=== PATIENT | female | born 1930 | race Asian ===

== ENCOUNTER 2016-07-19 12:07 | Emergency (ER) | payer OTHER ==
[~2016-07-19] VITALS: Ht 157.5 cm; Wt 46.0 kg
[~2016-07-19 12:07] MED LIST: ATOR20TA86 PO; BENZ-26 PO; CARV6 PO; CLOP75 PO; DOCU250C91 PO; FAMO20 PO; LISI-662 PO; MULT1TAB70 PO; NACL1 PO; OMEP20 PO; SITA50 PO
[2016-07-19] MEDS ORDERED: ISOS10TA16 PO (12:13)
[2016-07-19 12:22] LABS: GLUCOSE,POINT OF CARE 110 MG/DL (70-110)
[2016-07-19 12:53] LABS: BASOPHILS % (AUTO) 0.2 % (0.0-2.0); EOSINOPHILS % (AUTO) 2.5 % (1.0-6.0); HEMATOCRIT 38.2 % (36-46); HEMOGLOBIN 12.6 g/dL (12.0-16.0); LYMPHOCYTES % (AUTO) 13.5 % (22.0-44.0); MEAN CORPUSCULAR HEMOGLOBIN 29.4 pg (26.0-34.0); MEAN CORPUSCULAR HGB CONC 32.9 G/dL (31.0-37.0); MEAN CORPUSCULAR VOLUME 89 fL (80-100); MONOCYTES # (AUTO) 0.7 K/uL (0.1-1.0); MONOCYTES % (AUTO) 9.1 % (2.0-9.0); NEUTROPHILS # (AUTO) 5.5 K/uL (1.8-7.7); NEUTROPHILS % (AUTO) 74.7 % (40.0-70.0); PLATELET COUNT (AUTO) 214 K/uL (150-450); RED BLOOD CELL COUNT(AUTO) 4.28 MIL/uL (4.00-5.20); RED CELL DISTRIBUTION WIDTH 12.5 % (11.5-14.5); WHITE BLOOD COUNT (AUTO) 7.3 K/uL (4.5-11.0)
[2016-07-19 13:02] LABS: CALCIUM, TOTAL 8.3 mg/dL (8.8-10.5); CREATININE 0.92 mg/dL (0.60-1.30); POTASSIUM 3.7 mmol/L (3.5-5.1)
[2016-07-19 13:07] LABS: ALBUMIN 3.4 g/dL (3.4-5.0); BILIRUBIN,TOTAL 0.3 mg/dL (0.1-1.0); TOTAL PROTEIN, SERUM 6.8 g/dL (6.4-8.2)
[2016-07-19 13:25] VITALS: BP 145/46
== END 2016-07-19 13:51 | disposition home or self-care (01) ==
LOC: EMS 12:09
DX: R11.2 Nausea with vomiting, unspecified (principal); I11.0 Hypertensive heart disease with heart failure; I50.9 Heart failure, unspecified; E11.9 Type 2 diabetes mellitus without complications; E78.00 Pure hypercholesterolemia, unspecified; I25.10 Atherosclerotic heart disease of native coronary artery without angina pectoris
CPT/HCPCS: 82962; 93005; 99285

== ENCOUNTER 2016-10-18 21:25 | Inpatient (IN) | payer OTHER ==
[~2016-10-18] VITALS: Ht 149.9 cm; Wt 67.0 kg
[~2016-10-18 21:25] MED LIST changes: +ISOS10TA16 PO; -NACL1 PO; -OMEP20 PO
[2016-10-18] MEDS ORDERED: IPRATROPIUM BROMIDE 0.5 MG/2.5 ML NEB SOLUTION NEB ONE (22:00)
[2016-10-18] MEDS ORDERED: ALBUTEROL SULFATE 2.5 MG/0.5 ML NEB SOLUTION NEB ONE (22:00)
[2016-10-18] MEDS ORDERED: 0.9% SODIUM CHLORIDE 5 ML NEB SOLUTION NEB ONE (22:18)
[2016-10-18 22:27] LABS: BASOPHILS # (AUTO) 0.03 K/uL (0.00-0.20); BASOPHILS % (AUTO) 0.4 % (0.0-2.0); EOSINOPHILS # (AUTO) 0.25 K/uL (0.00-0.70); EOSINOPHILS % (AUTO) 3.26 % (1.0-6.0); HEMATOCRIT 37.7 % (36-46); HEMOGLOBIN 12.7 g/dL (12.0-16.0); LYMPHOCYTES # (AUTO) 1.4 K/uL (1.0-4.8); LYMPHOCYTES % (AUTO) 17.5 % (22.0-44.0); MEAN CORPUSCULAR HEMOGLOBIN 29.8 pg (26.0-34.0); MEAN CORPUSCULAR HGB CONC 33.7 G/dL (31.0-37.0); MEAN CORPUSCULAR VOLUME 89 fL (80-100); MONOCYTES % (AUTO) 13.2 % (2.0-9.0); NEUTROPHILS # (AUTO) 5.1 K/uL (1.8-7.7); NEUTROPHILS % (AUTO) 65.7 % (40.0-70.0); PLATELET COUNT (AUTO) 239 K/uL (150-450); RED BLOOD CELL COUNT(AUTO) 4.26 MIL/uL (4.00-5.20); RED CELL DISTRIBUTION WIDTH 13.8 % (11.5-14.5); WHITE BLOOD COUNT (AUTO) 7.8 K/uL (4.5-11.0)
[2016-10-18 22:36] LABS: ANION GAP 6 mmol/L (8-16); CALCIUM, TOTAL 8.3 mg/dL (8.8-10.5); CARBON DIOXIDE 29 mmol/L (22-29); CHLORIDE 90 mmol/L (98-107); CREATININE 0.88 mg/dL (0.60-1.30); GLOMERULAR FILTR. RATE CALC > 60 mL/min (>60); POTASSIUM 3.8 mmol/L (3.5-5.1); SODIUM SERUM 125 mmol/L (136-145); UREA NITROGEN, BLOOD 14 mg/dL (7-18)
[2016-10-18 22:43] LABS: ALANINE AMINOTRANSFERASE 24 U/L (12-78); ALBUMIN 3.4 g/dL (3.4-5.0); ASPARTATE AMINOTRANSFERASE 14 U/L (15-37); BILIRUBIN,TOTAL 0.3 mg/dL (0.1-1.0); CREATINE KINASE, TOTAL 48 U/L (26-192); TOTAL PROTEIN, SERUM 6.7 g/dL (6.4-8.2)
[2016-10-18 22:45] LABS: B-TYPE NATRIURETIC PEPTIDE 143 pg/mL (0-100)
[2016-10-18 22:48] LABS: APPEARANCE,URINE CLEAR (CLEAR); GLUCOSE, URINE (UA) 100 mg/dL (NEGATIVE); KETONES,URINE NEGATIVE (NEGATIVE); LEUKOCYTE ESTERASE ,URINE TRACE (NEGATIVE); OCCULT BLOOD,URINE TRACE (NEGATIVE); PROTEIN,URINE NEGATIVE (NEGATIVE)
[2016-10-18 22:49] LABS: ADD UA MICROSCOPIC YES
[2016-10-18 22:52] LABS: SQUAMOUS EPITHELIAL CELL,UR Many /LPF (None Seen)
[2016-10-18] MEDS ORDERED: ONDANSETRON HCL 4 MG/2 ML VIAL IVP PRN (23:30)
[2016-10-18] MEDS ORDERED: ACETAMINOPHEN 325 MG TABLET PO PRN (23:30)
[2016-10-18] MEDS ORDERED: MethylPREDNISolone SOD SUCC 125 MG/2 ML VIAL IVP ONE (23:30)
[2016-10-18] MEDS ORDERED: SODIUM CHLORIDE 0.9% 1,000 ML IV ONE (23:30)
[2016-10-18] MEDS ORDERED: GuaiFENesin/CODEINE [SUGAR FREE] 200-20MG/10 ML SYRUP UDCUP PO ONE (23:30)
[2016-10-18] MEDS ORDERED: 0.9% SODIUM CHLORIDE 10 ML SYRINGE IVP PRN (23:30)
[2016-10-18] MEDS ORDERED: SODIUM CHLORIDE 1 GM TABLET PO ONE (23:45)
[2016-10-19] VITALS (7 sets, daily range): BP systolic 126–180; BP diastolic 58–88
[2016-10-19] MEDS ORDERED: PNEUMOCOCCAL VACCINE POLYVALENT 0.5 ML VIAL [PPSV23] IM ONE (02:00)
[2016-10-19] MEDS: HydrALAZINE HCL 20 MG/ML VIAL IVP PRN (02:51)
[2016-10-19] MEDS: MULTIVITAMINS, THERAPEUTIC TABLET PO SCH (09:18)
[2016-10-19] MEDS: HEPARIN SODIUM,PORCINE 5,000 UNITS/ML VIAL SQ SCH ×2 (09:19→16:29)
[2016-10-19] MEDS: CLOPIDOGREL BISULFATE 75 MG TABLET PO SCH (09:19)
[2016-10-19] MEDS: CARVEDILOL 6.25 MG TABLET PO SCH ×2 (09:19→20:26)
[2016-10-19] MEDS: ISOSORBIDE DINITRATE 10 MG TABLET PO SCH (09:20)
[2016-10-19] MEDS: FAMOTIDINE 20 MG TABLET PO SCH ×2 (09:20→20:26)
[2016-10-19] MEDS: LISINOPRIL 20 MG TABLET PO SCH (09:20)
[2016-10-19] MEDS: SitaGLIPtin PHOSPHATE 50 MG TABLET PO SCH (09:20)
[2016-10-19] MEDS: MethylPREDNISolone SOD SUCC 40 MG/ML VIAL IVP SCH (16:28)
[2016-10-19] MEDS: BENZONATATE 100 MG CAPSULE PO PRN (17:53)
[2016-10-19] MEDS: ATORVASTATIN CALCIUM 20 MG TABLET PO SCH (20:26)
[2016-10-19] MEDS: OXYGEN THERAPY IH SCH (20:26)
[2016-10-20] VITALS (8 sets, daily range): BP systolic 126–181; BP diastolic 55–92
[2016-10-20] MEDS: HEPARIN SODIUM,PORCINE 5,000 UNITS/ML VIAL SQ SCH ×4 (00:22→23:22)
[2016-10-20] MEDS: MethylPREDNISolone SOD SUCC 40 MG/ML VIAL IVP SCH ×4 (00:22→23:23)
[2016-10-20 05:44] LABS: EOSINOPHILS % (AUTO) 0.1 % (1.0-6.0); HEMATOCRIT 38.9 % (36-46); HEMOGLOBIN 12.4 g/dL (12.0-16.0); LYMPHOCYTES # (AUTO) 0.5 K/uL (1.0-4.8); LYMPHOCYTES % (AUTO) 5.4 % (22.0-44.0); MEAN CORPUSCULAR HEMOGLOBIN 28.7 pg (26.0-34.0); MEAN CORPUSCULAR VOLUME 90 fL (80-100); MONOCYTES # (AUTO) 0.2 K/uL (0.1-1.0); MONOCYTES % (AUTO) 2.4 % (2.0-9.0); PLATELET COUNT (AUTO) 223 K/uL (150-450); RED BLOOD CELL COUNT(AUTO) 4.32 MIL/uL (4.00-5.20); WHITE BLOOD COUNT (AUTO) 8.7 K/uL (4.5-11.0)
[2016-10-20 06:00] LABS: CALCIUM, TOTAL 8.5 mg/dL (8.8-10.5); CREATININE 0.99 mg/dL (0.60-1.30); POTASSIUM 3.8 mmol/L (3.5-5.1)
[2016-10-20 06:38] LABS: NEUTROPHILS % (AUTO) 92.1 % (40.0-70.0)
[2016-10-20] MEDS: CLOPIDOGREL BISULFATE 75 MG TABLET PO SCH (09:01)
[2016-10-20] MEDS: ISOSORBIDE DINITRATE 10 MG TABLET PO SCH (09:01)
[2016-10-20] MEDS: SitaGLIPtin PHOSPHATE 50 MG TABLET PO SCH (09:01)
[2016-10-20] MEDS: CARVEDILOL 6.25 MG TABLET PO SCH ×2 (09:01→20:24)
[2016-10-20] MEDS: MULTIVITAMINS, THERAPEUTIC TABLET PO SCH (09:02)
[2016-10-20] MEDS: OXYGEN THERAPY IH SCH ×2 (09:02→20:24)
[2016-10-20] MEDS: FAMOTIDINE 20 MG TABLET PO SCH ×2 (09:03→20:24)
[2016-10-20] MEDS: LISINOPRIL 20 MG TABLET PO SCH (13:22)
[2016-10-20] MEDS ORDERED: AZITHROMYCIN 250 MG TABLET PO ONE (13:45)
[2016-10-20] MEDS: GuaiFENesin/D-METHORPHAN [SUGAR-FREE] 200-20MG/10 ML SYRUP UDCUP PO PRN ×2 (15:43→21:48)
[2016-10-20] MEDS: HydrALAZINE HCL 20 MG/ML VIAL IVP PRN (19:44)
[2016-10-20] MEDS: ATORVASTATIN CALCIUM 20 MG TABLET PO SCH (20:24)
[2016-10-20] MEDS: ACETAMINOPHEN 325 MG TABLET PO PRN (21:48)
[2016-10-21] VITALS (7 sets, daily range): BP systolic 107–182; BP diastolic 55–92
[2016-10-21] MEDS: HydrALAZINE HCL 20 MG/ML VIAL IVP PRN (04:40)
[2016-10-21] MEDS: GuaiFENesin/D-METHORPHAN [SUGAR-FREE] 200-20MG/10 ML SYRUP UDCUP PO PRN ×2 (04:46→20:07)
[2016-10-21] MEDS ORDERED: NITROGLYCERIN 2% (1 GM=INCH) PACKET TP PRN (05:45)
[2016-10-21] MEDS: ACETAMINOPHEN 325 MG TABLET PO PRN (06:28)
[2016-10-21] MEDS: MethylPREDNISolone SOD SUCC 40 MG/ML VIAL IVP SCH ×2 (09:21→16:46)
[2016-10-21] MEDS: HEPARIN SODIUM,PORCINE 5,000 UNITS/ML VIAL SQ SCH ×2 (09:21→16:46)
[2016-10-21] MEDS: SitaGLIPtin PHOSPHATE 50 MG TABLET PO SCH (09:22)
[2016-10-21] MEDS: ISOSORBIDE DINITRATE 10 MG TABLET PO SCH (09:22)
[2016-10-21] MEDS: CARVEDILOL 6.25 MG TABLET PO SCH ×2 (09:22→20:06)
[2016-10-21] MEDS: FAMOTIDINE 20 MG TABLET PO SCH ×2 (09:23→20:06)
[2016-10-21] MEDS: AZITHROMYCIN 250 MG TABLET PO SCH (09:23)
[2016-10-21] MEDS: MULTIVITAMINS, THERAPEUTIC TABLET PO SCH (09:23)
[2016-10-21] MEDS: LISINOPRIL 20 MG TABLET PO SCH (09:23)
[2016-10-21] MEDS: CLOPIDOGREL BISULFATE 75 MG TABLET PO SCH (09:23)
[2016-10-21] MEDS: DOCUSATE SODIUM 250 MG CAPSULE PO PRN (09:24)
[2016-10-21] MEDS ORDERED: ALBUTEROL SULFATE 2.5 MG/0.5 ML NEB SOLUTION NEB PRN (12:00)
[2016-10-21] MEDS ORDERED: IPRATROPIUM BROMIDE 0.5 MG/2.5 ML NEB SOLUTION NEB PRN (12:00)
[2016-10-21] MEDS ORDERED: FUROSEMIDE 40 MG/4 ML VIAL IVP ONE (13:45)
[2016-10-21] MEDS: IPRATROPIUM BROMIDE 0.5 MG/2.5 ML NEB SOLUTION NEB SCH ×2 (14:52→19:28)
[2016-10-21] MEDS: ALBUTEROL SULFATE 2.5 MG/0.5 ML NEB SOLUTION NEB SCH ×2 (14:52→19:28)
[2016-10-21] MEDS: OXYGEN THERAPY IH SCH (20:00)
[2016-10-21] MEDS: ATORVASTATIN CALCIUM 20 MG TABLET PO SCH (20:06)
[2016-10-22] VITALS (7 sets, daily range): BP systolic 111–172; BP diastolic 67–87
[2016-10-22] MEDS: MethylPREDNISolone SOD SUCC 40 MG/ML VIAL IVP SCH ×3 (00:57→16:05)
[2016-10-22] MEDS: HEPARIN SODIUM,PORCINE 5,000 UNITS/ML VIAL SQ SCH ×3 (00:58→16:06)
[2016-10-22] MEDS: IPRATROPIUM BROMIDE 0.5 MG/2.5 ML NEB SOLUTION NEB SCH ×4 (01:57→19:58)
[2016-10-22] MEDS: ALBUTEROL SULFATE 2.5 MG/0.5 ML NEB SOLUTION NEB SCH ×4 (01:57→19:58)
[2016-10-22 05:51] LABS: EOSINOPHILS % (AUTO) 0 % (1.0-6.0); HEMATOCRIT 37.6 % (36-46); HEMOGLOBIN 12.1 g/dL (12.0-16.0); LYMPHOCYTES # (AUTO) 0.5 K/uL (1.0-4.8); LYMPHOCYTES % (AUTO) 5.5 % (22.0-44.0); MEAN CORPUSCULAR HEMOGLOBIN 28.9 pg (26.0-34.0); MEAN CORPUSCULAR HGB CONC 32.2 G/dL (31.0-37.0); MEAN CORPUSCULAR VOLUME 90 fL (80-100); MONOCYTES # (AUTO) 0.6 K/uL (0.1-1.0); MONOCYTES % (AUTO) 6.6 % (2.0-9.0); NEUTROPHILS # (AUTO) 8.6 K/uL (1.8-7.7); PLATELET COUNT (AUTO) 226 K/uL (150-450); RED CELL DISTRIBUTION WIDTH 13.8 % (11.5-14.5); WHITE BLOOD COUNT (AUTO) 9.8 K/uL (4.5-11.0)
[2016-10-22 07:08] LABS: ALBUMIN 2.9 g/dL (3.4-5.0); BILIRUBIN,TOTAL 0.3 mg/dL (0.1-1.0); CALCIUM, TOTAL 8.1 mg/dL (8.8-10.5); CREATININE 0.99 mg/dL (0.60-1.30); MAGNESIUM 2.1 mg/dL (1.80-2.40); NEUTROPHILS % (AUTO) 87.9 % (40.0-70.0); POTASSIUM 4.4 mmol/L (3.5-5.1); TOTAL PROTEIN, SERUM 5.8 g/dL (6.4-8.2)
[2016-10-22] MEDS: OXYGEN THERAPY IH SCH ×2 (08:05→21:17)
[2016-10-22] MEDS: SODIUM CHLORIDE 1 GM TABLET PO SCH ×2 (09:43→16:06)
[2016-10-22] MEDS: MULTIVITAMINS, THERAPEUTIC TABLET PO SCH (09:43)
[2016-10-22] MEDS: ISOSORBIDE DINITRATE 10 MG TABLET PO SCH (09:43)
[2016-10-22] MEDS: FAMOTIDINE 20 MG TABLET PO SCH ×2 (09:43→20:05)
[2016-10-22] MEDS: CLOPIDOGREL BISULFATE 75 MG TABLET PO SCH (09:43)
[2016-10-22] MEDS: CARVEDILOL 6.25 MG TABLET PO SCH ×2 (09:43→20:05)
[2016-10-22] MEDS: AZITHROMYCIN 250 MG TABLET PO SCH (09:43)
[2016-10-22] MEDS: LISINOPRIL 20 MG TABLET PO SCH (09:43)
[2016-10-22] MEDS: SitaGLIPtin PHOSPHATE 50 MG TABLET PO SCH (09:43)
[2016-10-22 13:11] LABS: ALBUMIN 3.3 g/dL (3.4-5.0); BILIRUBIN,TOTAL 0.3 mg/dL (0.1-1.0); CALCIUM, TOTAL 8.3 mg/dL (8.8-10.5); CREATININE 0.97 mg/dL (0.60-1.30); TOTAL PROTEIN, SERUM 6.4 g/dL (6.4-8.2)
[2016-10-22] MEDS: ACETAMINOPHEN 325 MG TABLET PO PRN (19:44)
[2016-10-22] MEDS: GuaiFENesin/D-METHORPHAN [SUGAR-FREE] 200-20MG/10 ML SYRUP UDCUP PO PRN (20:05)
[2016-10-22] MEDS: ATORVASTATIN CALCIUM 20 MG TABLET PO SCH (20:05)
[2016-10-23] MEDS: SODIUM CHLORIDE 1 GM TABLET PO SCH ×3 (00:30→15:23)
[2016-10-23] MEDS: HEPARIN SODIUM,PORCINE 5,000 UNITS/ML VIAL SQ SCH ×3 (00:39→15:23)
[2016-10-23] MEDS: MethylPREDNISolone SOD SUCC 40 MG/ML VIAL IVP SCH ×3 (00:39→15:23)
[2016-10-23] MEDS: ALBUTEROL SULFATE 2.5 MG/0.5 ML NEB SOLUTION NEB SCH ×4 (02:40→20:52)
[2016-10-23] MEDS: IPRATROPIUM BROMIDE 0.5 MG/2.5 ML NEB SOLUTION NEB SCH ×4 (02:40→20:52)
[2016-10-23 04:11] VITALS: BP 155/76
[2016-10-23 06:46] LABS: EOSINOPHILS % (AUTO) 0 % (1.0-6.0); HEMATOCRIT 38.5 % (36-46); HEMOGLOBIN 12.3 g/dL (12.0-16.0); LYMPHOCYTES # (AUTO) 0.4 K/uL (1.0-4.8); LYMPHOCYTES % (AUTO) 4.9 % (22.0-44.0); MEAN CORPUSCULAR HEMOGLOBIN 28.8 pg (26.0-34.0); MEAN CORPUSCULAR VOLUME 90 fL (80-100); MONOCYTES # (AUTO) 0.5 K/uL (0.1-1.0); MONOCYTES % (AUTO) 5.1 % (2.0-9.0); NEUTROPHILS # (AUTO) 8.2 K/uL (1.8-7.7); PLATELET COUNT (AUTO) 231 K/uL (150-450); RED BLOOD CELL COUNT(AUTO) 4.27 MIL/uL (4.00-5.20); RED CELL DISTRIBUTION WIDTH 13.8 % (11.5-14.5); WHITE BLOOD COUNT (AUTO) 9.2 K/uL (4.5-11.0)
[2016-10-23 07:20] LABS: ALBUMIN 2.9 g/dL (3.4-5.0); BILIRUBIN,TOTAL 0.4 mg/dL (0.1-1.0); CALCIUM, TOTAL 7.8 mg/dL (8.8-10.5); CREATININE 0.91 mg/dL (0.60-1.30); PHOSPHORUS 3.3 mg/dL (2.5-4.9); POTASSIUM 4.5 mmol/L (3.5-5.1); TOTAL PROTEIN, SERUM 5.6 g/dL (6.4-8.2)
[2016-10-23 07:56] VITALS: BP 175/85
[2016-10-23] MEDS: ISOSORBIDE DINITRATE 10 MG TABLET PO SCH (08:53)
[2016-10-23] MEDS: SitaGLIPtin PHOSPHATE 50 MG TABLET PO SCH (08:54)
[2016-10-23] MEDS: OXYGEN THERAPY IH SCH ×2 (08:54→19:43)
[2016-10-23] MEDS: CLOPIDOGREL BISULFATE 75 MG TABLET PO SCH (08:54)
[2016-10-23] MEDS: AZITHROMYCIN 250 MG TABLET PO SCH (08:54)
[2016-10-23] MEDS: MULTIVITAMINS, THERAPEUTIC TABLET PO SCH (08:54)
[2016-10-23] MEDS: FAMOTIDINE 20 MG TABLET PO SCH (08:54)
[2016-10-23] MEDS: CARVEDILOL 6.25 MG TABLET PO SCH ×2 (08:54→20:55)
[2016-10-23] MEDS: LISINOPRIL 20 MG TABLET PO SCH (08:54)
[2016-10-23] MEDS: AmLODIPine BESYLATE 5 MG TABLET PO SCH (09:10)
[2016-10-23 11:40] VITALS: BP 155/66
[2016-10-23] MEDS ORDERED: TOLVAPTAN 15 MG TABLET PO ONE (13:00)
[2016-10-23 15:16] VITALS: BP 152/74
[2016-10-23 19:22] VITALS: BP 165/62
[2016-10-23] MEDS: ATORVASTATIN CALCIUM 20 MG TABLET PO SCH (20:55)
[2016-10-23] MEDS: GuaiFENesin/D-METHORPHAN [SUGAR-FREE] 200-20MG/10 ML SYRUP UDCUP PO PRN (20:59)
[2016-10-23] MEDS: PredniSONE 20 MG TABLET PO SCH (22:53)
[2016-10-23 23:54] VITALS: BP 160/86
[2016-10-24] MEDS: SODIUM CHLORIDE 1 GM TABLET PO SCH (00:27)
[2016-10-24] MEDS: HEPARIN SODIUM,PORCINE 5,000 UNITS/ML VIAL SQ SCH ×4 (00:30→23:26)
[2016-10-24] MEDS: ALBUTEROL SULFATE 2.5 MG/0.5 ML NEB SOLUTION NEB SCH ×4 (03:09→21:11)
[2016-10-24] MEDS: IPRATROPIUM BROMIDE 0.5 MG/2.5 ML NEB SOLUTION NEB SCH ×4 (03:09→21:11)
[2016-10-24 05:16] VITALS: BP 149/72
[2016-10-24] MEDS: PANTOPRAZOLE SODIUM 40 MG DR TABLET PO SCH (05:31)
[2016-10-24 06:32] LABS: EOSINOPHILS % (AUTO) 0 % (1.0-6.0); HEMATOCRIT 40.7 % (36-46); HEMOGLOBIN 12.9 g/dL (12.0-16.0); LYMPHOCYTES # (AUTO) 0.5 K/uL (1.0-4.8); LYMPHOCYTES % (AUTO) 4.4 % (22.0-44.0); MEAN CORPUSCULAR HEMOGLOBIN 28.6 pg (26.0-34.0); MEAN CORPUSCULAR HGB CONC 31.7 G/dL (31.0-37.0); MEAN CORPUSCULAR VOLUME 90 fL (80-100); MONOCYTES # (AUTO) 1.1 K/uL (0.1-1.0); MONOCYTES % (AUTO) 9.9 % (2.0-9.0); NEUTROPHILS # (AUTO) 9.2 K/uL (1.8-7.7); PLATELET COUNT (AUTO) 244 K/uL (150-450); RED CELL DISTRIBUTION WIDTH 14.1 % (11.5-14.5); WHITE BLOOD COUNT (AUTO) 10.7 K/uL (4.5-11.0)
[2016-10-24 07:26] VITALS: BP 148/67
[2016-10-24 07:31] LABS: ALANINE AMINOTRANSFERASE 24 U/L (12-78); ANION GAP 5 mmol/L (8-16); ASPARTATE AMINOTRANSFERASE 24 U/L (15-37); BILIRUBIN,TOTAL 0.3 mg/dL (0.1-1.0); CALCIUM, TOTAL 8.3 mg/dL (8.8-10.5); CARBON DIOXIDE 27 mmol/L (22-29); CHLORIDE 97 mmol/L (98-107); CREATININE 0.86 mg/dL (0.60-1.30); GLOMERULAR FILTR. RATE CALC > 60 mL/min (>60); POTASSIUM 4.9 mmol/L (3.5-5.1); SODIUM SERUM 129 mmol/L (136-145); TOTAL PROTEIN, SERUM 5.8 g/dL (6.4-8.2); UREA NITROGEN, BLOOD 27 mg/dL (7-18)
[2016-10-24 07:32] LABS: NEUTROPHILS % (AUTO) 85.7 % (40.0-70.0)
[2016-10-24] MEDS: OXYGEN THERAPY IH SCH ×2 (08:01→19:20)
[2016-10-24] MEDS ORDERED: TOLVAPTAN 15 MG TABLET PO ONE (08:15)
[2016-10-24] MEDS: SitaGLIPtin PHOSPHATE 50 MG TABLET PO SCH (09:12)
[2016-10-24] MEDS: ISOSORBIDE DINITRATE 10 MG TABLET PO SCH (09:12)
[2016-10-24] MEDS: PredniSONE 20 MG TABLET PO SCH ×2 (09:13→20:15)
[2016-10-24] MEDS: BENZONATATE 100 MG CAPSULE PO PRN (09:13)
[2016-10-24] MEDS: CARVEDILOL 6.25 MG TABLET PO SCH ×2 (09:13→20:15)
[2016-10-24] MEDS: DOCUSATE SODIUM 250 MG CAPSULE PO PRN (09:13)
[2016-10-24] MEDS: MULTIVITAMINS, THERAPEUTIC TABLET PO SCH (09:14)
[2016-10-24] MEDS: AZITHROMYCIN 250 MG TABLET PO SCH (09:14)
[2016-10-24] MEDS: CLOPIDOGREL BISULFATE 75 MG TABLET PO SCH (09:14)
[2016-10-24] MEDS: LISINOPRIL 20 MG TABLET PO SCH (09:14)
[2016-10-24] MEDS: AmLODIPine BESYLATE 5 MG TABLET PO SCH (09:14)
[2016-10-24 11:18] VITALS: BP 122/79
[2016-10-24 15:27] VITALS: BP 113/48
[2016-10-24 17:51] LABS: ANION GAP 3 mmol/L (8-16); CALCIUM, TOTAL 8.3 mg/dL (8.8-10.5); CARBON DIOXIDE 28 mmol/L (22-29); CHLORIDE 98 mmol/L (98-107); CREATININE 0.87 mg/dL (0.60-1.30); GLOMERULAR FILTR. RATE CALC > 60 mL/min (>60); POTASSIUM 4.7 mmol/L (3.5-5.1); SODIUM SERUM 129 mmol/L (136-145); UREA NITROGEN, BLOOD 31 mg/dL (7-18)
[2016-10-24 19:34] VITALS: BP 143/74
[2016-10-24] MEDS: ATORVASTATIN CALCIUM 20 MG TABLET PO SCH (20:15)
[2016-10-24] MEDS: GuaiFENesin/D-METHORPHAN [SUGAR-FREE] 200-20MG/10 ML SYRUP UDCUP PO PRN (20:16)
[2016-10-24 23:25] VITALS: BP 152/73
[2016-10-25] MEDS: ALBUTEROL SULFATE 2.5 MG/0.5 ML NEB SOLUTION NEB SCH ×3 (02:31→14:13)
[2016-10-25] MEDS: IPRATROPIUM BROMIDE 0.5 MG/2.5 ML NEB SOLUTION NEB SCH ×3 (02:31→14:13)
[2016-10-25 04:54] VITALS: BP 145/70
[2016-10-25] MEDS: PANTOPRAZOLE SODIUM 40 MG DR TABLET PO SCH (05:51)
[2016-10-25 06:43] LABS: ANION GAP 3 mmol/L (8-16); CALCIUM, TOTAL 7.7 mg/dL (8.8-10.5); CARBON DIOXIDE 28 mmol/L (22-29); CHLORIDE 98 mmol/L (98-107); CREATININE 0.83 mg/dL (0.60-1.30); GLOMERULAR FILTR. RATE CALC > 60 mL/min (>60); PHOSPHORUS 3.2 mg/dL (2.5-4.9); POTASSIUM 4.8 mmol/L (3.5-5.1); SODIUM SERUM 129 mmol/L (136-145); UREA NITROGEN, BLOOD 30 mg/dL (7-18)
[2016-10-25 08:04] VITALS: BP 149/76
[2016-10-25] MEDS ORDERED: TOLVAPTAN 15 MG TABLET PO ONE (08:45)
[2016-10-25] MEDS: HEPARIN SODIUM,PORCINE 5,000 UNITS/ML VIAL SQ SCH ×2 (09:04→15:52)
[2016-10-25] MEDS: PredniSONE 20 MG TABLET PO SCH (09:04)
[2016-10-25] MEDS: CARVEDILOL 6.25 MG TABLET PO SCH (09:04)
[2016-10-25] MEDS: ISOSORBIDE DINITRATE 10 MG TABLET PO SCH (09:04)
[2016-10-25] MEDS: LISINOPRIL 20 MG TABLET PO SCH (09:05)
[2016-10-25] MEDS: AZITHROMYCIN 250 MG TABLET PO SCH (09:05)
[2016-10-25] MEDS: AmLODIPine BESYLATE 5 MG TABLET PO SCH (09:05)
[2016-10-25] MEDS: CLOPIDOGREL BISULFATE 75 MG TABLET PO SCH (09:05)
[2016-10-25] MEDS: MULTIVITAMINS, THERAPEUTIC TABLET PO SCH (09:05)
[2016-10-25] MEDS: SitaGLIPtin PHOSPHATE 50 MG TABLET PO SCH (09:05)
[2016-10-25] MEDS: OXYGEN THERAPY IH SCH (09:15)
[2016-10-25 11:37] VITALS: BP 101/52
[2016-10-25] MEDS: GuaiFENesin/D-METHORPHAN [SUGAR-FREE] 200-20MG/10 ML SYRUP UDCUP PO PRN ×2 (15:56→16:33)
[2016-10-25] MEDS ORDERED: AMLO-511 PO (16:09)
== END 2016-10-25 17:00 | disposition home or self-care (01) | DRG 189 ==
LOC: EMS 21:27 → 5N 10-19
PROVIDERS: ADMIT Family Medicine; ATTEND Family Medicine
PROC: 3E0234Z Introduction of Serum, Toxoid and Vaccine into Muscle, Percutaneous Approach (ICD-10-PCS; principal; 2016-10-23)
DX: J96.20 Acute and chronic respiratory failure, unspecified whether with hypoxia or hypercapnia (principal); N39.0 Urinary tract infection, site not specified; J45.901 Unspecified asthma with (acute) exacerbation; E22.2 Syndrome of inappropriate secretion of antidiuretic hormone; I50.30 Unspecified diastolic (congestive) heart failure; J44.1 Chronic obstructive pulmonary disease with (acute) exacerbation; J06.9 Acute upper respiratory infection, unspecified; E11.9 Type 2 diabetes mellitus without complications; E78.5 Hyperlipidemia, unspecified; I45.10 Unspecified right bundle-branch block; I25.9 Chronic ischemic heart disease, unspecified; I25.10 Atherosclerotic heart disease of native coronary artery without angina pectoris; I11.0 Hypertensive heart disease with heart failure; I35.0 Nonrheumatic aortic (valve) stenosis; K58.9 Irritable bowel syndrome, unspecified; Z23 Encounter for immunization; Z90.49 Acquired absence of other specified parts of digestive tract; Z79.01 Long term (current) use of anticoagulants; Z79.899 Other long term (current) drug therapy; Z79.2 Long term (current) use of antibiotics; E78.00 Pure hypercholesterolemia, unspecified; Z83.3 Family history of diabetes mellitus; Z82.49 Family history of ischemic heart disease and other diseases of the circulatory system
CPT/HCPCS: 83735; 83935; 84100; 84295; 84300; 87086; 90471; 93005; 93306; 94640; 96361; 96374; 97116; 97161; 97166; 97530; 99285; J0360; J1644; J1940; J2920; J2930; J7030

== ENCOUNTER 2016-12-31 16:02 | Emergency (ER) | payer OTHER ==
[~2016-12-31] VITALS: Ht 162.6 cm; Wt 70.0 kg
[~2016-12-31 16:02] MED LIST changes: +AMLO-511 PO
[2016-12-31 17:23] LABS: GLUCOSE,POINT OF CARE 119 MG/DL (70-110)
[2016-12-31 17:50] LABS: BASOPHILS % (AUTO) 0.7 % (0.0-2.0); EOSINOPHILS % (AUTO) 3.6 % (1.0-6.0); HEMATOCRIT 37.9 % (36-46); HEMOGLOBIN 12.9 g/dL (12.0-16.0); LYMPHOCYTES # (AUTO) 1.2 K/uL (1.0-4.8); LYMPHOCYTES % (AUTO) 20.1 % (22.0-44.0); MEAN CORPUSCULAR HEMOGLOBIN 30.5 pg (26.0-34.0); MEAN CORPUSCULAR VOLUME 90 fL (80-100); MONOCYTES # (AUTO) 0.7 K/uL (0.1-1.0); MONOCYTES % (AUTO) 11.8 % (2.0-9.0); NEUTROPHILS # (AUTO) 3.9 K/uL (1.8-7.7); NEUTROPHILS % (AUTO) 63.8 % (40.0-70.0); PLATELET COUNT (AUTO) 260 K/uL (150-450); RED BLOOD CELL COUNT(AUTO) 4.22 MIL/uL (4.00-5.20); RED CELL DISTRIBUTION WIDTH 13.9 % (11.5-14.5); WHITE BLOOD COUNT (AUTO) 6.1 K/uL (4.5-11.0)
[2016-12-31 17:53] LABS: ANION GAP 6 mmol/L (8-16); CALCIUM, TOTAL 9.5 mg/dL (8.8-10.5); CARBON DIOXIDE 30 mmol/L (22-29); CHLORIDE 92 mmol/L (98-107); CREATININE 0.64 mg/dL (0.60-1.30); GLOMERULAR FILTR. RATE CALC > 60 mL/min (>60); POTASSIUM 3.6 mmol/L (3.5-5.1); SODIUM SERUM 128 mmol/L (136-145); UREA NITROGEN, BLOOD 9 mg/dL (7-18)
[2016-12-31 17:59] LABS: PROTHROMBIN TIME 10.2 SEC (9.4-11.6)
[2016-12-31 18:04] LABS: APPEARANCE,URINE CLEAR (CLEAR); GLUCOSE, URINE (UA) NEGATIVE (NEGATIVE); KETONES,URINE NEGATIVE (NEGATIVE); LEUKOCYTE ESTERASE ,URINE TRACE (NEGATIVE); OCCULT BLOOD,URINE TRACE (NEGATIVE); PH,URINE 7.5 (5.0-8.0); PROTEIN,URINE NEGATIVE (NEGATIVE)
[2016-12-31 18:07] LABS: ADD UA MICROSCOPIC YES; SQUAMOUS EPITHELIAL CELL,UR Moderate /LPF (None Seen)
[2016-12-31 18:13] LABS: B-TYPE NATRIURETIC PEPTIDE 224 pg/mL (0-100)
[2016-12-31 18:18] LABS: ALANINE AMINOTRANSFERASE 27 U/L (12-78); ALBUMIN 3.8 g/dL (3.4-5.0); ASPARTATE AMINOTRANSFERASE 23 U/L (15-37); BILIRUBIN,TOTAL 0.3 mg/dL (0.1-1.0); CREATINE KINASE MB 1.1 ng/mL (0-5); CREATINE KINASE, TOTAL 84 U/L (26-192); TOTAL PROTEIN, SERUM 7.3 g/dL (6.4-8.2)
[2016-12-31] MEDS ORDERED: SODIUM CHLORIDE 0.9% 1,000 ML IV ONE (19:00)
[2016-12-31] MEDS ORDERED: CefTRIAXone 1 GM/DEXTROSE 50 ML IV ONE (20:45)
[2016-12-31 21:24] VITALS: BP 166/74
== END 2016-12-31 21:32 | disposition home or self-care (01) ==
LOC: EMS 16:04
DX: N39.0 Urinary tract infection, site not specified (principal); I11.0 Hypertensive heart disease with heart failure; I50.9 Heart failure, unspecified; I25.10 Atherosclerotic heart disease of native coronary artery without angina pectoris; E11.9 Type 2 diabetes mellitus without complications; E78.00 Pure hypercholesterolemia, unspecified
CPT/HCPCS: 36415; 71010; 80053; 81001; 82550; 82553; 82962; 83690; 83880; 84484; 85025; 85610; 85730; 93005; 96361; 96374; 99285; J0696; J7030

== ENCOUNTER 2017-01-15 12:29 | Emergency (ER) | payer OTHER ==
[~2017-01-15] VITALS: Ht 157.5 cm; Wt 68.2 kg
[2017-01-15] MEDS ORDERED: SODIUM CHLORIDE 0.9% 1,000 ML IV ONE (13:23)
[2017-01-15] MEDS ORDERED: ONDANSETRON HCL 4 MG/2 ML VIAL IVP ONE (13:30)
[2017-01-15] MEDS ORDERED: MORPHINE SULFATE 4 MG/ML SYRINGE IVP ONE (13:30)
[2017-01-15 13:33] LABS: BASOPHILS % (AUTO) 0.3 % (0.0-2.0); EOSINOPHILS % (AUTO) 1.9 % (1.0-6.0); HEMATOCRIT 39.1 % (36-46); HEMOGLOBIN 13.2 g/dL (12.0-16.0); LYMPHOCYTES # (AUTO) 0.9 K/uL (1.0-4.8); LYMPHOCYTES % (AUTO) 12.3 % (22.0-44.0); MEAN CORPUSCULAR HEMOGLOBIN 30.3 pg (26.0-34.0); MEAN CORPUSCULAR HGB CONC 33.7 G/dL (31.0-37.0); MEAN CORPUSCULAR VOLUME 90 fL (80-100); MONOCYTES # (AUTO) 0.7 K/uL (0.1-1.0); MONOCYTES % (AUTO) 9.9 % (2.0-9.0); NEUTROPHILS # (AUTO) 5.7 K/uL (1.8-7.7); NEUTROPHILS % (AUTO) 75.6 % (40.0-70.0); PLATELET COUNT (AUTO) 270 K/uL (150-450); RED BLOOD CELL COUNT(AUTO) 4.34 MIL/uL (4.00-5.20); RED CELL DISTRIBUTION WIDTH 13.3 % (11.5-14.5); WHITE BLOOD COUNT (AUTO) 7.6 K/uL (4.5-11.0)
[2017-01-15 13:54] LABS: ANION GAP 5 mmol/L (8-16); CALCIUM, TOTAL 8.8 mg/dL (8.8-10.5); CARBON DIOXIDE 31 mmol/L (22-29); CHLORIDE 89 mmol/L (98-107); GLOMERULAR FILTR. RATE CALC > 60 mL/min (>60); POTASSIUM 3.7 mmol/L (3.5-5.1); SODIUM SERUM 125 mmol/L (136-145); UREA NITROGEN, BLOOD 11 mg/dL (7-18)
[2017-01-15 13:59] LABS: ALANINE AMINOTRANSFERASE 30 U/L (12-78); ALBUMIN 3.8 g/dL (3.4-5.0); ASPARTATE AMINOTRANSFERASE 20 U/L (15-37); BILIRUBIN,TOTAL 0.3 mg/dL (0.1-1.0); TOTAL PROTEIN, SERUM 7.6 g/dL (6.4-8.2)
[2017-01-15] MEDS ORDERED: BARIUM SULFATE 0.1% SUSPENSION 450 ML BOTTLE PO ONE (14:00)
[2017-01-15 14:39] LABS: APPEARANCE,URINE CLEAR (CLEAR); GLUCOSE, URINE (UA) 100 mg/dL (NEGATIVE); KETONES,URINE NEGATIVE (NEGATIVE); LEUKOCYTE ESTERASE ,URINE NEGATIVE (NEGATIVE); OCCULT BLOOD,URINE NEGATIVE (NEGATIVE); PH,URINE 7.5 (5.0-8.0); PROTEIN,URINE NEGATIVE (NEGATIVE)
[2017-01-15 14:44] LABS: ADD UA MICROSCOPIC YES
[2017-01-15 14:46] LABS: RBC,URINE None Seen /HPF (0-2); WBC,URINE None Seen /HPF (0-5)
[2017-01-15] MEDS ORDERED: IOVERSOL 350 MG/ML 100 ML VIAL ONE (15:48)
[2017-01-15] MEDS ORDERED: SODIUM CHLORIDE 0.9% 100 ML ONE (15:48)
[2017-01-15 18:32] LABS: GLUCOSE,POINT OF CARE 115 MG/DL (70-110)
[2017-01-15 19:15] VITALS: BP 165/83
== END 2017-01-15 20:36 | disposition short-term general hospital (02) ==
LOC: EMS 12:32
DX: E87.1 Hypo-osmolality and hyponatremia (principal); K56.7 Ileus, unspecified; I11.0 Hypertensive heart disease with heart failure; I50.9 Heart failure, unspecified; I25.10 Atherosclerotic heart disease of native coronary artery without angina pectoris; E11.9 Type 2 diabetes mellitus without complications; E78.00 Pure hypercholesterolemia, unspecified; K58.9 Irritable bowel syndrome, unspecified; Z90.49 Acquired absence of other specified parts of digestive tract
CPT/HCPCS: 36415; 51702; 74177; 80053; 81001; 82962; 83690; 84484; 85025; 93005; 96361; 96374; 96375; 99291; J2270; J2405; J7030; J7050; Q9967

== ENCOUNTER 2017-03-05 19:53 | Inpatient (IN) | payer MEDICARE, OTHER ==
[~2017-03-05] VITALS: Ht 154.9 cm; Wt 70.6 kg
[~2017-03-05 19:53] MED LIST changes: -BENZ-26 PO; +BENZ-51 PO; -DOCU250C91 PO; +DSS100 PO; +FLUT1AER IH; +FURO20 PO; -ISOS10TA16 PO; +NACL1 PO; +ONDA4 PO
[2017-03-05 20:12] LABS: GLUCOSE,POINT OF CARE 136 MG/DL (70-110)
[2017-03-05 21:27] LABS: BASOPHILS % (AUTO) 0.5 % (0.0-2.0); EOSINOPHILS % (AUTO) 2.6 % (1.0-6.0); HEMATOCRIT 35.8 % (36-46); HEMOGLOBIN 12.3 g/dL (12.0-16.0); LYMPHOCYTES # (AUTO) 1.2 K/uL (1.0-4.8); MEAN CORPUSCULAR HEMOGLOBIN 30.8 pg (26.0-34.0); MEAN CORPUSCULAR HGB CONC 34.4 G/dL (31.0-37.0); MEAN CORPUSCULAR VOLUME 90 fL (80-100); MONOCYTES % (AUTO) 15.1 % (2.0-9.0); NEUTROPHILS # (AUTO) 4.4 K/uL (1.8-7.7); NEUTROPHILS % (AUTO) 63.8 % (40.0-70.0); PLATELET COUNT (AUTO) 248 K/uL (150-450); RED CELL DISTRIBUTION WIDTH 12.8 % (11.5-14.5); WHITE BLOOD COUNT (AUTO) 6.8 K/uL (4.5-11.0)
[2017-03-05 21:52] LABS: APPEARANCE,URINE CLEAR (CLEAR); GLUCOSE, URINE (UA) 100 mg/dL (NEGATIVE); KETONES,URINE NEGATIVE (NEGATIVE); LEUKOCYTE ESTERASE ,URINE NEGATIVE (NEGATIVE); OCCULT BLOOD,URINE TRACE (NEGATIVE); PROTEIN,URINE NEGATIVE (NEGATIVE)
[2017-03-05 21:53] LABS: ADD UA MICROSCOPIC YES
[2017-03-05 21:55] LABS: INR 0.9 (0.9-1.1)
[2017-03-05 22:00] LABS: ALANINE AMINOTRANSFERASE 23 U/L (12-78); ALBUMIN 3.7 g/dL (3.4-5.0); ANION GAP 8 mmol/L (8-16); ASPARTATE AMINOTRANSFERASE 17 U/L (15-37); BILIRUBIN,TOTAL 0.3 mg/dL (0.1-1.0); CALCIUM, TOTAL 8.6 mg/dL (8.8-10.5); CARBON DIOXIDE 26 mmol/L (22-29); CHLORIDE 82 mmol/L (98-107); CREATINE KINASE MB 1.4 ng/mL (0-5); CREATINE KINASE, TOTAL 107 U/L (26-192); CREATININE 0.56 mg/dL (0.60-1.30); GLOMERULAR FILTR. RATE CALC > 60 mL/min (>60); POTASSIUM 3.7 mmol/L (3.5-5.1); TOTAL PROTEIN, SERUM 7.2 g/dL (6.4-8.2); UREA NITROGEN, BLOOD 13 mg/dL (7-18)
[2017-03-05 22:14] LABS: B-TYPE NATRIURETIC PEPTIDE 151 pg/mL (0-100)
[2017-03-05 22:19] LABS: SQUAMOUS EPITHELIAL CELL,UR Few /LPF (None Seen)
[2017-03-05 22:21] LABS: WBC,URINE 0-2 /HPF (0-5)
[2017-03-05 22:32] LABS: SODIUM SERUM 116 mmol/L (136-145)
[2017-03-05] MEDS ORDERED: 0.9% SODIUM CHLORIDE 10 ML SYRINGE IVP PRN (23:00)
[2017-03-05] MEDS ORDERED: ONDANSETRON HCL 4 MG/2 ML VIAL IVP PRN (23:00)
[2017-03-05] MEDS ORDERED: ACETAMINOPHEN 325 MG TABLET PO PRN (23:00)
[2017-03-06] MEDS ORDERED: SODIUM CHLORIDE 3% 500 ML IV ONE (00:15)
[2017-03-06 07:01] LABS: ANION GAP 6 mmol/L (8-16); CALCIUM, TOTAL 8.3 mg/dL (8.8-10.5); CARBON DIOXIDE 27 mmol/L (22-29); CHLORIDE 89 mmol/L (98-107); CREATININE 0.71 mg/dL (0.60-1.30); GLOMERULAR FILTR. RATE CALC > 60 mL/min (>60); POTASSIUM 3.5 mmol/L (3.5-5.1); UREA NITROGEN, BLOOD 14 mg/dL (7-18); URIC ACID 3.3 mg/dL (2.6-7.2)
[2017-03-06 07:13] LABS: SODIUM SERUM 122 mmol/L (136-145)
[2017-03-06 08:43] VITALS: BP 144/70
[2017-03-06] MEDS: FUROSEMIDE 20 MG TABLET PO SCH (10:30)
[2017-03-06 11:26] VITALS: BP 148/69
[2017-03-06] MEDS: CLOPIDOGREL BISULFATE 75 MG TABLET PO SCH ×2 (11:29→12:22)
[2017-03-06] MEDS: FLUTICASONE/VILANTEROL 100-25 MCG/INH INHALER [14] IH SCH ×2 (11:29→12:21)
[2017-03-06] MEDS: CARVEDILOL 6.25 MG TABLET PO SCH ×3 (11:29→20:34)
[2017-03-06] MEDS: FAMOTIDINE 20 MG TABLET PO SCH ×3 (11:29→20:34)
[2017-03-06] MEDS: LISINOPRIL 20 MG TABLET PO SCH ×2 (11:29→12:22)
[2017-03-06] MEDS: AmLODIPine BESYLATE 5 MG TABLET PO SCH ×2 (11:29→12:21)
[2017-03-06] MEDS: SODIUM CHLORIDE 1 GM TABLET PO SCH ×3 (11:29→20:33)
[2017-03-06] MEDS: MULTIVITAMINS, THERAPEUTIC TABLET PO SCH (12:21)
[2017-03-06] MEDS ORDERED: ALBUTEROL SULFATE 2.5 MG/0.5 ML NEB SOLUTION NEB PRN (13:45)
[2017-03-06] MEDS ORDERED: 0.9% SODIUM CHLORIDE 10 ML SYRINGE IVP PRN ×2 (13:45)
[2017-03-06] MEDS ORDERED: IPRATROPIUM BROMIDE 0.5 MG/2.5 ML NEB SOLUTION NEB PRN (13:45)
[2017-03-06] MEDS ORDERED: HYDROCODONE/ACETAMINOPHEN 5-325 MG TABLET PO PRN (13:45)
[2017-03-06] MEDS ORDERED: ONDANSETRON HCL 4 MG/2 ML VIAL IVP PRN (13:45)
[2017-03-06] MEDS ORDERED: ZOLPIDEM TARTRATE 5 MG TABLET PO PRN (13:45)
[2017-03-06] MEDS ORDERED: DEXTROSE 50%-WATER 25 GM/50 ML SYRINGE IVP PRN (14:00)
[2017-03-06] MEDS: SitaGLIPtin PHOSPHATE 50 MG TABLET PO SCH (15:31)
[2017-03-06] MEDS: FLUTICASONE/VILANTEROL 200-25 MCG/INH INHALER [14] IH SCH (15:32)
[2017-03-06] MEDS: FLUTICASONE PROPIONATE 50 MCG/SPRAY 16 GM NASAL SPRAY NASAL SCH ×2 (15:32→21:00)
[2017-03-06] MEDS: DOCUSATE SODIUM 250 MG CAPSULE PO SCH ×2 (15:34→20:33)
[2017-03-06 15:51] VITALS: BP 137/63
[2017-03-06] MEDS ORDERED: DOCUSATE SODIUM 100 MG CAPSULE PO SCH (16:00)
[2017-03-06] MEDS: INSULIN ASPART 100 UNITS/ML SQ PRN (17:26)
[2017-03-06 17:31] LABS: ANION GAP 8 mmol/L (8-16); CALCIUM, TOTAL 8.4 mg/dL (8.8-10.5); CARBON DIOXIDE 23 mmol/L (22-29); CHLORIDE 91 mmol/L (98-107); CREATININE 0.73 mg/dL (0.60-1.30); GLOMERULAR FILTR. RATE CALC > 60 mL/min (>60); POTASSIUM 4.1 mmol/L (3.5-5.1); UREA NITROGEN, BLOOD 14 mg/dL (7-18)
[2017-03-06 17:35] LABS: SODIUM SERUM 122 mmol/L (136-145)
[2017-03-06 19:25] VITALS: BP 137/52
[2017-03-06 19:59] LABS: GLUCOSE COMMENT 1 Received Meds; GLUCOSE,POINT OF CARE 150 MG/DL (70-110)
[2017-03-06] MEDS: LACTULOSE 20 GM/30 ML SOLUTION UDCUP PO ONE (20:00)
[2017-03-06] MEDS: ACETAMINOPHEN 325 MG TABLET PO PRN (20:31)
[2017-03-06] MEDS: ATORVASTATIN CALCIUM 20 MG TABLET PO SCH (20:34)
[2017-03-06] MEDS: HEPARIN SODIUM,PORCINE 5,000 UNITS/ML VIAL SQ SCH (20:34)
[2017-03-06] MEDS: BIMATOPROST 0.01% 2.5 ML OPHTHALMIC SOLUTION OU SCH (21:00)
[2017-03-06 23:47] VITALS: BP 149/71
[2017-03-07 00:02] LABS: GLUCOSE,POINT OF CARE 124 MG/DL (70-110)
[2017-03-07 03:35] VITALS: BP 139/72
[2017-03-07] MEDS: LACTULOSE 20 GM/30 ML SOLUTION UDCUP PO ONE (05:46)
[2017-03-07] MEDS: PANTOPRAZOLE SODIUM 40 MG DR TABLET PO SCH (05:46)
[2017-03-07 07:18] VITALS: BP 141/64
[2017-03-07] MEDS: FUROSEMIDE 20 MG TABLET PO SCH (09:00)
[2017-03-07] MEDS: FLUTICASONE/VILANTEROL 200-25 MCG/INH INHALER [14] IH SCH (09:23)
[2017-03-07] MEDS: FAMOTIDINE 20 MG TABLET PO SCH ×2 (09:23→22:05)
[2017-03-07] MEDS: SODIUM CHLORIDE 1 GM TABLET PO SCH ×3 (09:23→21:45)
[2017-03-07] MEDS: MULTIVITAMINS, THERAPEUTIC TABLET PO SCH (09:23)
[2017-03-07] MEDS: HEPARIN SODIUM,PORCINE 5,000 UNITS/ML VIAL SQ SCH ×2 (09:23→21:45)
[2017-03-07] MEDS: SitaGLIPtin PHOSPHATE 50 MG TABLET PO SCH (09:23)
[2017-03-07] MEDS: CARVEDILOL 6.25 MG TABLET PO SCH ×2 (09:23→21:46)
[2017-03-07] MEDS: FLUTICASONE PROPIONATE 50 MCG/SPRAY 16 GM NASAL SPRAY NASAL SCH ×2 (09:23→21:46)
[2017-03-07] MEDS: AmLODIPine BESYLATE 5 MG TABLET PO SCH (09:23)
[2017-03-07] MEDS: DOCUSATE SODIUM 250 MG CAPSULE PO SCH ×3 (09:23→21:46)
[2017-03-07] MEDS: CLOPIDOGREL BISULFATE 75 MG TABLET PO SCH (09:23)
[2017-03-07 09:55] LABS: ANION GAP 9 mmol/L (8-16); CALCIUM, TOTAL 8.6 mg/dL (8.8-10.5); CARBON DIOXIDE 25 mmol/L (22-29); CHLORIDE 91 mmol/L (98-107); CREATININE 0.81 mg/dL (0.60-1.30); GLOMERULAR FILTR. RATE CALC > 60 mL/min (>60); POTASSIUM 3.8 mmol/L (3.5-5.1); SODIUM SERUM 125 mmol/L (136-145); UREA NITROGEN, BLOOD 13 mg/dL (7-18)
[2017-03-07 09:59] LABS: PHOSPHORUS 3.6 mg/dL (2.5-4.9)
[2017-03-07] MEDS: LISINOPRIL 20 MG TABLET PO SCH (10:08)
[2017-03-07 11:07] VITALS: BP 132/67
[2017-03-07] MEDS: INSULIN ASPART 100 UNITS/ML SQ PRN ×3 (11:47→21:48)
[2017-03-07 15:12] VITALS: BP 131/64
[2017-03-07 15:53] LABS: THYROID STIMULATING HORMONE 1.95 uIU/mL (0.36-3.74)
[2017-03-07] MEDS: ACETAMINOPHEN 325 MG TABLET PO PRN (15:59)
[2017-03-07 16:08] LABS: CHOL/HDL RATIO 2.2 (3.9-5.7)
[2017-03-07 19:36] VITALS: BP 123/56
[2017-03-07] MEDS: BIMATOPROST 0.01% 2.5 ML OPHTHALMIC SOLUTION OU SCH (21:46)
[2017-03-07] MEDS: ATORVASTATIN CALCIUM 20 MG TABLET PO SCH (21:46)
[2017-03-07 22:37] LABS: GLUCOSE,POINT OF CARE 106 MG/DL (70-110)
[2017-03-07 22:38] LABS: GLUCOSE,POINT OF CARE 188 MG/DL (70-110)
[2017-03-07 23:42] VITALS: BP 149/67
[2017-03-08 04:24] VITALS: BP 153/69
[2017-03-08] MEDS: PANTOPRAZOLE SODIUM 40 MG DR TABLET PO SCH (06:25)
[2017-03-08 07:03] LABS: ALANINE AMINOTRANSFERASE 28 U/L (12-78); ALBUMIN 3.5 g/dL (3.4-5.0); ANION GAP 10 mmol/L (8-16); ASPARTATE AMINOTRANSFERASE 20 U/L (15-37); BILIRUBIN,TOTAL 0.3 mg/dL (0.1-1.0); CALCIUM, TOTAL 8.7 mg/dL (8.8-10.5); CARBON DIOXIDE 26 mmol/L (22-29); CHLORIDE 90 mmol/L (98-107); CREATININE 0.62 mg/dL (0.60-1.30); GLOMERULAR FILTR. RATE CALC > 60 mL/min (>60); SODIUM SERUM 126 mmol/L (136-145); TOTAL PROTEIN, SERUM 6.7 g/dL (6.4-8.2); UREA NITROGEN, BLOOD 12 mg/dL (7-18)
[2017-03-08 07:48] VITALS: BP 137/93
[2017-03-08] MEDS: LISINOPRIL 20 MG TABLET PO SCH (08:50)
[2017-03-08] MEDS: AmLODIPine BESYLATE 5 MG TABLET PO SCH (08:50)
[2017-03-08] MEDS: CLOPIDOGREL BISULFATE 75 MG TABLET PO SCH (08:50)
[2017-03-08] MEDS: FAMOTIDINE 20 MG TABLET PO SCH ×2 (08:50→21:00)
[2017-03-08] MEDS: HEPARIN SODIUM,PORCINE 5,000 UNITS/ML VIAL SQ SCH ×2 (08:51→20:59)
[2017-03-08] MEDS: DOCUSATE SODIUM 250 MG CAPSULE PO SCH ×3 (08:51→21:05)
[2017-03-08] MEDS: FLUTICASONE/VILANTEROL 200-25 MCG/INH INHALER [14] IH SCH (08:51)
[2017-03-08] MEDS: FLUTICASONE PROPIONATE 50 MCG/SPRAY 16 GM NASAL SPRAY NASAL SCH ×2 (08:51→20:59)
[2017-03-08] MEDS: CARVEDILOL 6.25 MG TABLET PO SCH ×2 (08:51→20:59)
[2017-03-08] MEDS: SitaGLIPtin PHOSPHATE 50 MG TABLET PO SCH (08:51)
[2017-03-08] MEDS: SODIUM CHLORIDE 1 GM TABLET PO SCH ×3 (08:51→20:59)
[2017-03-08] MEDS: MULTIVITAMINS, THERAPEUTIC TABLET PO SCH (08:51)
[2017-03-08] MEDS: FUROSEMIDE 20 MG TABLET PO SCH (08:52)
[2017-03-08 11:37] VITALS: BP 144/68
[2017-03-08] MEDS: INSULIN ASPART 100 UNITS/ML SQ PRN ×3 (11:55→21:01)
[2017-03-08 12:12] LABS: GLUCOSE,POINT OF CARE 135 MG/DL (70-110)
[2017-03-08 12:18] LABS: GLUCOSE COMMENT 1 Received Meds; GLUCOSE,POINT OF CARE 146 MG/DL (70-110)
[2017-03-08 15:53] VITALS: BP 132/57
[2017-03-08 17:28] LABS: GLUCOSE,POINT OF CARE 136 MG/DL (70-110)
[2017-03-08 19:56] VITALS: BP 154/67
[2017-03-08] MEDS: ATORVASTATIN CALCIUM 20 MG TABLET PO SCH (21:00)
[2017-03-08] MEDS: BIMATOPROST 0.01% 2.5 ML OPHTHALMIC SOLUTION OU SCH (21:00)
[2017-03-08 23:30] VITALS: BP 137/80
[2017-03-09 04:52] VITALS: BP 144/75
[2017-03-09] MEDS: PANTOPRAZOLE SODIUM 40 MG DR TABLET PO SCH (06:05)
[2017-03-09] MEDS: INSULIN ASPART 100 UNITS/ML SQ PRN ×3 (06:06→20:42)
[2017-03-09 06:32] LABS: ALANINE AMINOTRANSFERASE 25 U/L (12-78); ALBUMIN 3.2 g/dL (3.4-5.0); ANION GAP 8 mmol/L (8-16); ASPARTATE AMINOTRANSFERASE 16 U/L (15-37); BILIRUBIN,TOTAL 0.3 mg/dL (0.1-1.0); CALCIUM, TOTAL 8.2 mg/dL (8.8-10.5); CARBON DIOXIDE 26 mmol/L (22-29); CHLORIDE 93 mmol/L (98-107); CREATININE 0.71 mg/dL (0.60-1.30); GLOMERULAR FILTR. RATE CALC > 60 mL/min (>60); POTASSIUM 3.9 mmol/L (3.5-5.1); SODIUM SERUM 127 mmol/L (136-145); TOTAL PROTEIN, SERUM 6.1 g/dL (6.4-8.2); UREA NITROGEN, BLOOD 11 mg/dL (7-18)
[2017-03-09 07:17] LABS: GLUCOSE COMMENT 1 Received Meds; GLUCOSE,POINT OF CARE 189 MG/DL (70-110)
[2017-03-09 07:31] VITALS: BP 131/48
[2017-03-09] MEDS: SitaGLIPtin PHOSPHATE 50 MG TABLET PO SCH (08:06)
[2017-03-09] MEDS: FLUTICASONE PROPIONATE 50 MCG/SPRAY 16 GM NASAL SPRAY NASAL SCH ×2 (08:06→20:40)
[2017-03-09] MEDS: FLUTICASONE/VILANTEROL 200-25 MCG/INH INHALER [14] IH SCH (08:06)
[2017-03-09] MEDS: CARVEDILOL 6.25 MG TABLET PO SCH ×2 (08:06→20:40)
[2017-03-09] MEDS: LISINOPRIL 20 MG TABLET PO SCH (08:07)
[2017-03-09] MEDS: MULTIVITAMINS, THERAPEUTIC TABLET PO SCH (08:07)
[2017-03-09] MEDS: CLOPIDOGREL BISULFATE 75 MG TABLET PO SCH (08:07)
[2017-03-09] MEDS: FAMOTIDINE 20 MG TABLET PO SCH ×2 (08:07→20:40)
[2017-03-09] MEDS: HEPARIN SODIUM,PORCINE 5,000 UNITS/ML VIAL SQ SCH ×2 (08:07→20:39)
[2017-03-09] MEDS: SODIUM CHLORIDE 1 GM TABLET PO SCH ×3 (08:07→20:39)
[2017-03-09] MEDS: FUROSEMIDE 20 MG TABLET PO SCH (08:09)
[2017-03-09 09:09] LABS: GLUCOSE COMMENT 1 Received Meds; GLUCOSE,POINT OF CARE 173 MG/DL (70-110)
[2017-03-09 09:09] LABS: GLUCOSE COMMENT 1 Received Meds; GLUCOSE,POINT OF CARE 176 MG/DL (70-110)
[2017-03-09 11:09] VITALS: BP 134/62
[2017-03-09] MEDS: AmLODIPine BESYLATE 5 MG TABLET PO SCH (12:41)
[2017-03-09] MEDS: DOCUSATE SODIUM 250 MG CAPSULE PO SCH ×3 (12:41→20:39)
[2017-03-09 16:16] VITALS: BP 152/82
[2017-03-09 19:25] VITALS: BP 155/74
[2017-03-09] MEDS: BIMATOPROST 0.01% 2.5 ML OPHTHALMIC SOLUTION OU SCH (20:39)
[2017-03-09] MEDS: ATORVASTATIN CALCIUM 20 MG TABLET PO SCH (20:40)
[2017-03-09 23:28] VITALS: BP 143/74
[2017-03-09 23:42] LABS: GLUCOSE,POINT OF CARE 115 MG/DL (70-110)
[2017-03-10 05:15] VITALS: BP 159/78
[2017-03-10] MEDS: PANTOPRAZOLE SODIUM 40 MG DR TABLET PO SCH (06:16)
[2017-03-10] MEDS: INSULIN ASPART 100 UNITS/ML SQ PRN ×2 (06:17→11:45)
[2017-03-10 06:33] LABS: GLUCOSE COMMENT 1 Received Meds; GLUCOSE,POINT OF CARE 181 MG/DL (70-110)
[2017-03-10 06:33] LABS: GLUCOSE COMMENT 1 Received Meds; GLUCOSE,POINT OF CARE 190 MG/DL (70-110)
[2017-03-10 07:58] VITALS: BP 164/66
[2017-03-10 08:03] LABS: ALANINE AMINOTRANSFERASE 26 U/L (12-78); ALBUMIN 3.3 g/dL (3.4-5.0); ANION GAP 7 mmol/L (8-16); ASPARTATE AMINOTRANSFERASE 15 U/L (15-37); BILIRUBIN,TOTAL 0.2 mg/dL (0.1-1.0); CALCIUM, TOTAL 8.8 mg/dL (8.8-10.5); CARBON DIOXIDE 29 mmol/L (22-29); CHLORIDE 93 mmol/L (98-107); CREATININE 0.72 mg/dL (0.60-1.30); GLOMERULAR FILTR. RATE CALC > 60 mL/min (>60); POTASSIUM 3.4 mmol/L (3.5-5.1); SODIUM SERUM 129 mmol/L (136-145); UREA NITROGEN, BLOOD 13 mg/dL (7-18)
[2017-03-10] MEDS: FUROSEMIDE 20 MG TABLET PO SCH (09:27)
[2017-03-10] MEDS: MULTIVITAMINS, THERAPEUTIC TABLET PO SCH (09:27)
[2017-03-10] MEDS: FLUTICASONE PROPIONATE 50 MCG/SPRAY 16 GM NASAL SPRAY NASAL SCH (09:27)
[2017-03-10] MEDS: AmLODIPine BESYLATE 5 MG TABLET PO SCH (09:27)
[2017-03-10] MEDS: SODIUM CHLORIDE 1 GM TABLET PO SCH (09:27)
[2017-03-10] MEDS: FLUTICASONE/VILANTEROL 200-25 MCG/INH INHALER [14] IH SCH (09:27)
[2017-03-10] MEDS: CARVEDILOL 6.25 MG TABLET PO SCH (09:27)
[2017-03-10] MEDS: FAMOTIDINE 20 MG TABLET PO SCH (09:28)
[2017-03-10] MEDS: HEPARIN SODIUM,PORCINE 5,000 UNITS/ML VIAL SQ SCH (09:28)
[2017-03-10] MEDS: CLOPIDOGREL BISULFATE 75 MG TABLET PO SCH (09:28)
[2017-03-10] MEDS: DOCUSATE SODIUM 250 MG CAPSULE PO SCH (09:28)
[2017-03-10] MEDS: SitaGLIPtin PHOSPHATE 50 MG TABLET PO SCH (09:28)
[2017-03-10] MEDS: LISINOPRIL 20 MG TABLET PO SCH (09:28)
[2017-03-10 11:07] VITALS: BP 140/68
[2017-03-10] MEDS ORDERED: NACL1 PO (14:10)
[2017-03-10 15:20] VITALS: BP 107/64
[2017-03-10 19:33] LABS: GLUCOSE COMMENT 1 Received Meds; GLUCOSE,POINT OF CARE 148 MG/DL (70-110)
[2017-03-11 00:08] LABS: GLUCOSE,POINT OF CARE 150 MG/DL (70-110)
[2017-03-11 00:08] LABS: GLUCOSE COMMENT 1 Received Meds; GLUCOSE,POINT OF CARE 163 MG/DL (70-110)
== END 2017-03-10 15:58 | disposition home health service (06) | DRG 644 ==
LOC: EMS 19:56 → 5N 03-06 02:27 → 5S 03-07 16:30
PROVIDERS: ADMIT Internal Medicine; ATTEND Internal Medicine
DX: E22.2 Syndrome of inappropriate secretion of antidiuretic hormone (principal); I50.30 Unspecified diastolic (congestive) heart failure; I11.0 Hypertensive heart disease with heart failure; E11.9 Type 2 diabetes mellitus without complications; E78.5 Hyperlipidemia, unspecified; K29.70 Gastritis, unspecified, without bleeding; J44.9 Chronic obstructive pulmonary disease, unspecified; K58.9 Irritable bowel syndrome, unspecified; S80.01XA Contusion of right knee, initial encounter; S80.02XA Contusion of left knee, initial encounter; E78.00 Pure hypercholesterolemia, unspecified; I25.10 Atherosclerotic heart disease of native coronary artery without angina pectoris; Z79.899 Other long term (current) drug therapy
CPT/HCPCS: 51702; 74000; 82962; 83036; 83735; 83935; 84100; 84133; 84300; 84443; 84550; 93005; 96360; 96361; 97162; 97165; 97530; 97535; 99291; J1644; J7030

== ENCOUNTER 2017-03-20 17:32 | Inpatient (IN) | payer MEDICARE, OTHER ==
[~2017-03-20] VITALS: Ht 152.4 cm; Wt 72.8 kg
[2017-03-20 17:58] LABS: GLUCOSE,POINT OF CARE 141 MG/DL (70-110)
[2017-03-20 18:37] LABS: BASOPHILS # (AUTO) 0.02 K/uL (0.00-0.20); BASOPHILS % (AUTO) 0.3 % (0.0-2.0); EOSINOPHILS # (AUTO) 0.31 K/uL (0.00-0.70); EOSINOPHILS % (AUTO) 4.45 % (1.0-6.0); HEMATOCRIT 33.9 % (36-46); HEMOGLOBIN 11.6 g/dL (12.0-16.0); LYMPHOCYTES # (AUTO) 0.9 K/uL (1.0-4.8); LYMPHOCYTES % (AUTO) 13.7 % (22.0-44.0); MEAN CORPUSCULAR HEMOGLOBIN 30.6 pg (26.0-34.0); MEAN CORPUSCULAR HGB CONC 34.1 G/dL (31.0-37.0); MEAN CORPUSCULAR VOLUME 90 fL (80-100); MONOCYTES # (AUTO) 0.7 K/uL (0.1-1.0); MONOCYTES % (AUTO) 10.2 % (2.0-9.0); NEUTROPHILS # (AUTO) 4.9 K/uL (1.8-7.7); NEUTROPHILS % (AUTO) 71.4 % (40.0-70.0); PLATELET COUNT (AUTO) 258 K/uL (150-450); RED BLOOD CELL COUNT(AUTO) 3.78 MIL/uL (4.00-5.20)
[2017-03-20 18:53] LABS: LIPASE 680 U/L (73-393)
[2017-03-20 19:11] LABS: CARBAMAZEPINE (TEGRETOL) < 0.5 mcg/mL (4.0-12.0)
[2017-03-20 19:33] LABS: ALANINE AMINOTRANSFERASE 24 U/L (12-78); ALBUMIN 3.4 g/dL (3.4-5.0); ALKALINE PHOSPHATASE 68 U/L (46-116); ANION GAP 8 mmol/L (8-16); ASPARTATE AMINOTRANSFERASE 19 U/L (15-37); BILIRUBIN,TOTAL 0.4 mg/dL (0.1-1.0); CALCIUM, TOTAL 8.4 mg/dL (8.8-10.5); CARBON DIOXIDE 25 mmol/L (22-29); CHLORIDE 84 mmol/L (98-107); CREATININE 0.57 mg/dL (0.60-1.30); GLOMERULAR FILTR. RATE CALC > 60 mL/min (>60); GLUCOSE,RANDOM 119 mg/dL (70-110); TOTAL PROTEIN, SERUM 6.6 g/dL (6.4-8.2); UREA NITROGEN, BLOOD 14 mg/dL (7-18)
[2017-03-20 19:40] LABS: SODIUM SERUM 117 mmol/L (136-145)
[2017-03-20] MEDS ORDERED: SODIUM CHLORIDE 0.9% 1,000 ML IV ONE (19:45)
[2017-03-20] MEDS ORDERED: 0.9% SODIUM CHLORIDE 10 ML SYRINGE IVP PRN (20:15)
[2017-03-20] MEDS ORDERED: ACETAMINOPHEN 325 MG TABLET PO PRN (20:15)
[2017-03-20] MEDS ORDERED: ONDANSETRON HCL 4 MG/2 ML VIAL IVP PRN (20:15)
[2017-03-20 21:25] VITALS: BP 136/84
[2017-03-20] MEDS ORDERED: MORPHINE SULFATE 2 MG/ML SYRINGE IVP PRN ×2 (21:45)
[2017-03-20] MEDS ORDERED: DEXTROSE 50%-WATER 25 GM/50 ML SYRINGE IVP PRN (21:45)
[2017-03-20] MEDS ORDERED: MAGNESIUM HYDROXIDE SUSPENSION 30 ML UDCUP PO PRN (21:45)
[2017-03-20] MEDS: ACETAMINOPHEN 325 MG TABLET PO PRN (21:56)
[2017-03-21] MEDS ORDERED: SODIUM CHLORIDE 3% 500 ML IV SCH
[2017-03-21 00:04] VITALS: BP 147/57
[2017-03-21] MEDS: LORazepam 2 MG/ML VIAL IVP PRN ×2 (01:22→21:38)
[2017-03-21 05:13] VITALS: BP 135/68
[2017-03-21 06:54] LABS: BASOPHILS % (AUTO) 0.4 % (0.0-2.0); EOSINOPHILS % (AUTO) 4.4 % (1.0-6.0); HEMATOCRIT 35.2 % (36-46); HEMOGLOBIN 11.9 g/dL (12.0-16.0); LYMPHOCYTES # (AUTO) 1.3 K/uL (1.0-4.8); MEAN CORPUSCULAR HEMOGLOBIN 30.8 pg (26.0-34.0); MEAN CORPUSCULAR HGB CONC 33.8 G/dL (31.0-37.0); MEAN CORPUSCULAR VOLUME 91 fL (80-100); MONOCYTES # (AUTO) 0.9 K/uL (0.1-1.0); MONOCYTES % (AUTO) 11.2 % (2.0-9.0); NEUTROPHILS # (AUTO) 5.3 K/uL (1.8-7.7); PLATELET COUNT (AUTO) 271 K/uL (150-450); RED BLOOD CELL COUNT(AUTO) 3.86 MIL/uL (4.00-5.20); RED CELL DISTRIBUTION WIDTH 12.9 % (11.5-14.5)
[2017-03-21 07:10] VITALS: BP 139/72
[2017-03-21 07:17] LABS: HEMOGLOBIN A1C 6.7 % (4.5-6.2)
[2017-03-21 07:53] LABS: AMYLASE 63 U/L (25-115); ANION GAP 8 mmol/L (8-16); CALCIUM, TOTAL 8.4 mg/dL (8.8-10.5); CARBON DIOXIDE 25 mmol/L (22-29); CHLORIDE 85 mmol/L (98-107); CHOL/HDL RATIO 1.9 (3.9-5.7); CHOLESTEROL 170 mg/dL (131-200); CREATINE KINASE, TOTAL 78 U/L (26-192); CREATININE 0.69 mg/dL (0.60-1.30); FREE T4 (FREE THYROXINE) 1.07 ng/dL (0.76-1.46); GLOMERULAR FILTR. RATE CALC > 60 mL/min (>60); GLUCOSE,RANDOM 97 mg/dL (70-110); HDL CHOLESTEROL 91 mg/dL (40-60); LDL CHOL (CALC.) 64 mg/dL (0-130); LIPASE 375 U/L (73-393); PHOSPHORUS 3.7 mg/dL (2.5-4.9); POTASSIUM 3.6 mmol/L (3.5-5.1); THYROID STIMULATING HORMONE 2.49 uIU/mL (0.36-3.74); TRIGLYCERIDES 75 mg/dL (15-150); UREA NITROGEN, BLOOD 13 mg/dL (7-18)
[2017-03-21 07:59] LABS: SODIUM SERUM 118 mmol/L (136-145)
[2017-03-21] MEDS: FLUTICASONE/VILANTEROL 100-25 MCG/INH INHALER [14] IH SCH (09:31)
[2017-03-21] MEDS: CARVEDILOL 6.25 MG TABLET PO SCH ×2 (09:34→19:55)
[2017-03-21] MEDS: PANTOPRAZOLE SODIUM 40 MG/VIAL IVP SCH (09:34)
[2017-03-21] MEDS: DOCUSATE SODIUM 100 MG CAPSULE PO SCH ×3 (09:34→19:55)
[2017-03-21] MEDS: CLOPIDOGREL BISULFATE 75 MG TABLET PO SCH (09:35)
[2017-03-21] MEDS: LISINOPRIL 10 MG TABLET PO SCH (09:35)
[2017-03-21] MEDS: SODIUM CHLORIDE 1 GM TABLET PO SCH ×3 (09:35→20:01)
[2017-03-21] MEDS: MULTIVITAMINS, THERAPEUTIC TABLET PO SCH (09:35)
[2017-03-21 10:38] LABS: FOLATE SERUM 16.2 ng/mL (5.4-)
[2017-03-21 11:18] VITALS: BP 111/47
[2017-03-21 15:17] LABS: ANION GAP 8 mmol/L (8-16); CALCIUM, TOTAL 8.4 mg/dL (8.8-10.5); CARBON DIOXIDE 23 mmol/L (22-29); CHLORIDE 89 mmol/L (98-107); GLOMERULAR FILTR. RATE CALC > 60 mL/min (>60); GLUCOSE,RANDOM 119 mg/dL (70-110); POTASSIUM 4.1 mmol/L (3.5-5.1); UREA NITROGEN, BLOOD 17 mg/dL (7-18)
[2017-03-21 15:23] LABS: SODIUM SERUM 120 mmol/L (136-145)
[2017-03-21 16:03] VITALS: BP 139/71
[2017-03-21 19:46] VITALS: BP 154/73
[2017-03-21] MEDS: ACETAMINOPHEN 325 MG TABLET PO PRN (19:55)
[2017-03-21 20:54] LABS: GLUCOMETER DEV NAME(LOC) 5N 2R; GLUCOSE,POINT OF CARE 109 MG/DL (70-110)
[2017-03-21 20:54] LABS: GLUCOMETER DEV NAME(LOC) 5S 2N; GLUCOSE,POINT OF CARE 147 MG/DL (70-110)
[2017-03-21] MEDS: BENZONATATE 100 MG CAPSULE PO PRN (21:37)
[2017-03-21] MEDS: INSULIN ASPART 100 UNITS/ML SQ PRN (21:40)
[2017-03-21 22:03] LABS: OSMOLALITY,URINE 566 mOS/kg (50-1200)
[2017-03-21 22:05] LABS: SODIUM,URINE RANDOM 74 mmol/l (20-110)
[2017-03-22] VITALS (7 sets, daily range): BP systolic 138–165; BP diastolic 55–91
[2017-03-22 06:48] LABS: GLUCOMETER DEV NAME(LOC) 5N 1M; GLUCOSE,POINT OF CARE 126 MG/DL (70-110)
[2017-03-22 06:48] LABS: GLUCOMETER DEV NAME(LOC) 5N 1M; GLUCOSE,POINT OF CARE 152 MG/DL (70-110)
[2017-03-22 06:49] LABS: GLUCOMETER DEV NAME(LOC) 5N 1M; GLUCOSE,POINT OF CARE 128 MG/DL (70-110)
[2017-03-22 07:55] LABS: BASOPHILS # (AUTO) 0.06 K/uL (0.00-0.20); BASOPHILS % (AUTO) 0.9 % (0.0-2.0); EOSINOPHILS % (AUTO) 4.94 % (1.0-6.0); HEMOGLOBIN 11.7 g/dL (12.0-16.0); LYMPHOCYTES # (AUTO) 0.8 K/uL (1.0-4.8); LYMPHOCYTES % (AUTO) 13.7 % (22.0-44.0); MEAN CORPUSCULAR HEMOGLOBIN 30.6 pg (26.0-34.0); MEAN CORPUSCULAR HGB CONC 33.5 G/dL (31.0-37.0); MEAN CORPUSCULAR VOLUME 92 fL (80-100); MONOCYTES # (AUTO) 0.8 K/uL (0.1-1.0); MONOCYTES % (AUTO) 12.6 % (2.0-9.0); NEUTROPHILS # (AUTO) 4.1 K/uL (1.8-7.7); NEUTROPHILS % (AUTO) 67.9 % (40.0-70.0); PLATELET COUNT (AUTO) 269 K/uL (150-450); RED BLOOD CELL COUNT(AUTO) 3.82 MIL/uL (4.00-5.20); RED CELL DISTRIBUTION WIDTH 13.3 % (11.5-14.5)
[2017-03-22] MEDS: FLUTICASONE/VILANTEROL 100-25 MCG/INH INHALER [14] IH SCH (08:51)
[2017-03-22] MEDS: DOCUSATE SODIUM 100 MG CAPSULE PO SCH ×3 (08:52→19:46)
[2017-03-22] MEDS: MULTIVITAMINS, THERAPEUTIC TABLET PO SCH (08:52)
[2017-03-22] MEDS: PANTOPRAZOLE SODIUM 40 MG/VIAL IVP SCH (08:52)
[2017-03-22] MEDS: CARVEDILOL 6.25 MG TABLET PO SCH ×2 (08:52→19:45)
[2017-03-22] MEDS: LISINOPRIL 10 MG TABLET PO SCH (08:52)
[2017-03-22] MEDS: CLOPIDOGREL BISULFATE 75 MG TABLET PO SCH (08:52)
[2017-03-22] MEDS: SODIUM CHLORIDE 1 GM TABLET PO SCH ×3 (09:00→19:45)
[2017-03-22 09:11] LABS: ANION GAP 6 mmol/L (8-16); CALCIUM, TOTAL 8.3 mg/dL (8.8-10.5); CARBON DIOXIDE 26 mmol/L (22-29); CHLORIDE 92 mmol/L (98-107); CREATININE 0.59 mg/dL (0.60-1.30); GLOMERULAR FILTR. RATE CALC > 60 mL/min (>60); GLUCOSE,RANDOM 104 mg/dL (70-110); POTASSIUM 3.8 mmol/L (3.5-5.1); UREA NITROGEN, BLOOD 13 mg/dL (7-18)
[2017-03-22 09:19] LABS: SODIUM SERUM 124 mmol/L (136-145)
[2017-03-22] MEDS: ACETAMINOPHEN 325 MG TABLET PO PRN (13:09)
[2017-03-22] MEDS: INSULIN ASPART 100 UNITS/ML SQ PRN (17:59)
[2017-03-22] MEDS: ZOLPIDEM TARTRATE 5 MG TABLET PO PRN (22:02)
[2017-03-22] MEDS: LORazepam 2 MG/ML VIAL IVP PRN (23:40)
[2017-03-23 05:37] VITALS: BP 165/86
[2017-03-23 05:49] VITALS: BP 124/74
[2017-03-23 06:08] LABS: GLUCOMETER DEV NAME(LOC) 5N 2R; GLUCOSE,POINT OF CARE 140 MG/DL (70-110)
[2017-03-23 06:08] LABS: GLUCOMETER DEV NAME(LOC) 5N 2R; GLUCOSE,POINT OF CARE 182 MG/DL (70-110)
[2017-03-23 06:09] LABS: GLUCOMETER DEV NAME(LOC) 5N 2R; GLUCOSE,POINT OF CARE 130 MG/DL (70-110)
[2017-03-23 06:09] LABS: GLUCOMETER DEV NAME(LOC) 5N 2R; GLUCOSE,POINT OF CARE 130 MG/DL (70-110)
[2017-03-23 06:59] LABS: BASOPHILS # (AUTO) 0.04 K/uL (0.00-0.20); BASOPHILS % (AUTO) 0.6 % (0.0-2.0); EOSINOPHILS # (AUTO) 0.31 K/uL (0.00-0.70); EOSINOPHILS % (AUTO) 4.21 % (1.0-6.0); HEMATOCRIT 35.3 % (36-46); HEMOGLOBIN 11.8 g/dL (12.0-16.0); LYMPHOCYTES # (AUTO) 1.1 K/uL (1.0-4.8); LYMPHOCYTES % (AUTO) 15.1 % (22.0-44.0); MEAN CORPUSCULAR HEMOGLOBIN 30.5 pg (26.0-34.0); MEAN CORPUSCULAR HGB CONC 33.4 G/dL (31.0-37.0); MEAN CORPUSCULAR VOLUME 91 fL (80-100); MONOCYTES # (AUTO) 0.8 K/uL (0.1-1.0); MONOCYTES % (AUTO) 11.2 % (2.0-9.0); NEUTROPHILS # (AUTO) 5.2 K/uL (1.8-7.7); NEUTROPHILS % (AUTO) 68.9 % (40.0-70.0); PLATELET COUNT (AUTO) 276 K/uL (150-450); RED BLOOD CELL COUNT(AUTO) 3.86 MIL/uL (4.00-5.20); RED CELL DISTRIBUTION WIDTH 13.2 % (11.5-14.5)
[2017-03-23 07:06] LABS: AMYLASE 61 U/L (25-115); ANION GAP 8 mmol/L (8-16); CALCIUM, TOTAL 8.7 mg/dL (8.8-10.5); CARBON DIOXIDE 26 mmol/L (22-29); CHLORIDE 91 mmol/L (98-107); CREATININE 0.57 mg/dL (0.60-1.30); GLOMERULAR FILTR. RATE CALC > 60 mL/min (>60); GLUCOSE,RANDOM 103 mg/dL (70-110); LIPASE 377 U/L (73-393); POTASSIUM 3.5 mmol/L (3.5-5.1); SODIUM SERUM 125 mmol/L (136-145); UREA NITROGEN, BLOOD 12 mg/dL (7-18)
[2017-03-23 07:24] VITALS: BP 157/75
[2017-03-23] MEDS: LISINOPRIL 10 MG TABLET PO SCH (08:11)
[2017-03-23] MEDS: SODIUM CHLORIDE 1 GM TABLET PO SCH ×3 (08:11→20:55)
[2017-03-23] MEDS: FLUTICASONE/VILANTEROL 100-25 MCG/INH INHALER [14] IH SCH (08:12)
[2017-03-23] MEDS: CARVEDILOL 6.25 MG TABLET PO SCH ×2 (08:12→20:55)
[2017-03-23] MEDS: DOCUSATE SODIUM 100 MG CAPSULE PO SCH ×3 (08:12→20:55)
[2017-03-23] MEDS: PANTOPRAZOLE SODIUM 40 MG/VIAL IVP SCH (08:12)
[2017-03-23] MEDS: MULTIVITAMINS, THERAPEUTIC TABLET PO SCH (08:12)
[2017-03-23] MEDS: CLOPIDOGREL BISULFATE 75 MG TABLET PO SCH (08:12)
[2017-03-23] MEDS ORDERED: BISACODYL 10 MG RECTAL RECTAL SUPPOSITORY PR PRN (10:30)
[2017-03-23 11:38] VITALS: BP 148/80
[2017-03-23 14:28] LABS: GLUCOMETER DEV NAME(LOC) 5S 2N; GLUCOSE,POINT OF CARE 131 MG/DL (70-110)
[2017-03-23 16:07] VITALS: BP 128/58
[2017-03-23] MEDS: INSULIN ASPART 100 UNITS/ML SQ PRN ×2 (17:49→21:08)
[2017-03-23 20:53] VITALS: BP 160/85
[2017-03-23] MEDS: ACETAMINOPHEN 325 MG TABLET PO PRN (20:55)
[2017-03-23] MEDS: CHOLECALCIFEROL (VIT D3) 1,000 UNITS TABLET PO SCH (21:05)
[2017-03-23] MEDS: ONDANSETRON HCL 4 MG/2 ML VIAL IVP PRN (21:11)
[2017-03-24] VITALS (7 sets, daily range): BP systolic 140–167; BP diastolic 55–77
[2017-03-24] MEDS: IPRATROPIUM BROMIDE 0.5 MG/2.5 ML NEB SOLUTION NEB PRN (02:59)
[2017-03-24] MEDS: ALBUTEROL SULFATE 2.5 MG/0.5 ML NEB SOLUTION NEB PRN (02:59)
[2017-03-24 03:57] LABS: GLUCOMETER DEV NAME(LOC) 5S 2N; GLUCOSE,POINT OF CARE 163 MG/DL (70-110)
[2017-03-24 03:58] LABS: GLUCOMETER DEV NAME(LOC) 5S 2N; GLUCOSE,POINT OF CARE 149 MG/DL (70-110)
[2017-03-24 03:58] LABS: GLUCOMETER DEV NAME(LOC) 5N 1M; GLUCOSE,POINT OF CARE 152 MG/DL (70-110)
[2017-03-24] MEDS: INSULIN ASPART 100 UNITS/ML SQ PRN ×3 (06:02→22:18)
[2017-03-24 06:47] LABS: ANION GAP 8 mmol/L (8-16); CALCIUM, TOTAL 8.7 mg/dL (8.8-10.5); CARBON DIOXIDE 26 mmol/L (22-29); CHLORIDE 90 mmol/L (98-107); CREATININE 0.68 mg/dL (0.60-1.30); GLOMERULAR FILTR. RATE CALC > 60 mL/min (>60); GLUCOSE,RANDOM 152 mg/dL (70-110); PHOSPHORUS 3.3 mg/dL (2.5-4.9); POTASSIUM 4.1 mmol/L (3.5-5.1); UREA NITROGEN, BLOOD 11 mg/dL (7-18)
[2017-03-24 07:10] LABS: SODIUM SERUM 124 mmol/L (136-145)
[2017-03-24] MEDS: LISINOPRIL 10 MG TABLET PO SCH (08:02)
[2017-03-24] MEDS: SODIUM CHLORIDE 1 GM TABLET PO SCH ×5 (08:02→21:21)
[2017-03-24] MEDS: DOCUSATE SODIUM 100 MG CAPSULE PO SCH ×3 (08:02→21:20)
[2017-03-24] MEDS: CHOLECALCIFEROL (VIT D3) 1,000 UNITS TABLET PO SCH ×2 (08:02→21:20)
[2017-03-24] MEDS: CLOPIDOGREL BISULFATE 75 MG TABLET PO SCH (08:02)
[2017-03-24] MEDS: FLUTICASONE/VILANTEROL 100-25 MCG/INH INHALER [14] IH SCH (08:03)
[2017-03-24] MEDS: PANTOPRAZOLE SODIUM 40 MG/VIAL IVP SCH (08:03)
[2017-03-24] MEDS: CARVEDILOL 6.25 MG TABLET PO SCH ×2 (08:03→21:20)
[2017-03-24] MEDS: MULTIVITAMINS, THERAPEUTIC TABLET PO SCH (08:03)
[2017-03-24] MEDS: ONDANSETRON HCL 4 MG/2 ML VIAL IVP PRN (08:06)
[2017-03-24 17:03] LABS: GLUCOMETER DEV NAME(LOC) 5N 1M; GLUCOSE,POINT OF CARE 117 MG/DL (70-110)
[2017-03-24] MEDS ORDERED: LACTULOSE 20 GM/30 ML SOLUTION UDCUP PO ONE (17:45)
[2017-03-24 19:27] LABS: GLUCOMETER DEV NAME(LOC) 5S 2N; GLUCOSE,POINT OF CARE 151 MG/DL (70-110)
[2017-03-24 19:33] LABS: GLUCOMETER DEV NAME(LOC) 5N 1M; GLUCOSE,POINT OF CARE 191 MG/DL (70-110)
[2017-03-24] MEDS: ZOLPIDEM TARTRATE 5 MG TABLET PO PRN (22:37)
[2017-03-25 01:46] VITALS: BP 129/57
[2017-03-25 02:58] LABS: GLUCOMETER DEV NAME(LOC) 5S 1L; GLUCOSE,POINT OF CARE 152 MG/DL (70-110)
[2017-03-25] MEDS: INSULIN ASPART 100 UNITS/ML SQ PRN ×4 (05:44→20:53)
[2017-03-25 06:52] LABS: GLUCOMETER DEV NAME(LOC) 5S 2N; GLUCOSE,POINT OF CARE 126 MG/DL (70-110)
[2017-03-25 07:00] LABS: ANION GAP 9 mmol/L (8-16); CALCIUM, TOTAL 8.4 mg/dL (8.8-10.5); CARBON DIOXIDE 27 mmol/L (22-29); CHLORIDE 92 mmol/L (98-107); CREATININE 0.79 mg/dL (0.60-1.30); GLOMERULAR FILTR. RATE CALC > 60 mL/min (>60); GLUCOSE,RANDOM 176 mg/dL (70-110); PHOSPHORUS 3.5 mg/dL (2.5-4.9); POTASSIUM 3.8 mmol/L (3.5-5.1); SODIUM SERUM 128 mmol/L (136-145); UREA NITROGEN, BLOOD 13 mg/dL (7-18)
[2017-03-25 07:51] VITALS: BP 163/78
[2017-03-25] MEDS: PANTOPRAZOLE SODIUM 40 MG/VIAL IVP SCH (08:17)
[2017-03-25] MEDS: MULTIVITAMINS, THERAPEUTIC TABLET PO SCH (08:17)
[2017-03-25] MEDS: CARVEDILOL 6.25 MG TABLET PO SCH ×2 (08:17→20:46)
[2017-03-25] MEDS: LISINOPRIL 10 MG TABLET PO SCH (08:17)
[2017-03-25] MEDS: DOCUSATE SODIUM 100 MG CAPSULE PO SCH ×3 (08:17→20:46)
[2017-03-25] MEDS: SODIUM CHLORIDE 1 GM TABLET PO SCH ×4 (08:17→20:46)
[2017-03-25] MEDS: CLOPIDOGREL BISULFATE 75 MG TABLET PO SCH (08:17)
[2017-03-25] MEDS: CHOLECALCIFEROL (VIT D3) 1,000 UNITS TABLET PO SCH ×2 (08:17→20:46)
[2017-03-25 09:02] VITALS: BP 185/95
[2017-03-25] MEDS: IPRATROPIUM BROMIDE 0.5 MG/2.5 ML NEB SOLUTION NEB PRN ×2 (09:16→14:54)
[2017-03-25] MEDS: ALBUTEROL SULFATE 2.5 MG/0.5 ML NEB SOLUTION NEB PRN ×2 (09:16→14:54)
[2017-03-25 11:28] VITALS: BP 124/64
[2017-03-25] MEDS: FLUTICASONE/VILANTEROL 100-25 MCG/INH INHALER [14] IH SCH (12:59)
[2017-03-25 16:14] VITALS: BP 155/68
[2017-03-25] MEDS ORDERED: LACTULOSE 20 GM/30 ML SOLUTION UDCUP PO ONE (16:30)
[2017-03-25] MEDS ORDERED: FUROSEMIDE 20 MG/2 ML VIAL IVP ONE (16:30)
[2017-03-25] MEDS: ACETAMINOPHEN 325 MG TABLET PO PRN (19:32)
[2017-03-25 20:38] VITALS: BP 159/76
[2017-03-25] MEDS: ZOLPIDEM TARTRATE 5 MG TABLET PO PRN (20:46)
[2017-03-26] VITALS (8 sets, daily range): BP systolic 144–175; BP diastolic 62–90
[2017-03-26] MEDS ORDERED: LACTULOSE 20 GM/30 ML SOLUTION UDCUP PO ONE ×3 (08:30→14:00)
[2017-03-26] MEDS: PANTOPRAZOLE SODIUM 40 MG/VIAL IVP SCH (08:36)
[2017-03-26] MEDS: FLUTICASONE/VILANTEROL 100-25 MCG/INH INHALER [14] IH SCH (08:36)
[2017-03-26] MEDS: CHOLECALCIFEROL (VIT D3) 1,000 UNITS TABLET PO SCH ×2 (08:37→20:39)
[2017-03-26] MEDS: SODIUM CHLORIDE 1 GM TABLET PO SCH ×4 (08:37→20:39)
[2017-03-26] MEDS: CLOPIDOGREL BISULFATE 75 MG TABLET PO SCH (08:37)
[2017-03-26] MEDS: DOCUSATE SODIUM 100 MG CAPSULE PO SCH ×3 (08:37→20:39)
[2017-03-26] MEDS: MULTIVITAMINS, THERAPEUTIC TABLET PO SCH (08:37)
[2017-03-26] MEDS: CARVEDILOL 6.25 MG TABLET PO SCH ×2 (08:37→20:39)
[2017-03-26] MEDS: LISINOPRIL 10 MG TABLET PO SCH (08:37)
[2017-03-26] MEDS: BENZONATATE 100 MG CAPSULE PO PRN (08:38)
[2017-03-26 09:01] LABS: ANION GAP 7 mmol/L (8-16); CALCIUM, TOTAL 8.8 mg/dL (8.8-10.5); CARBON DIOXIDE 28 mmol/L (22-29); CHLORIDE 91 mmol/L (98-107); CREATININE 0.65 mg/dL (0.60-1.30); GLOMERULAR FILTR. RATE CALC > 60 mL/min (>60); GLUCOSE,RANDOM 143 mg/dL (70-110); POTASSIUM 3.5 mmol/L (3.5-5.1); SODIUM SERUM 126 mmol/L (136-145); UREA NITROGEN, BLOOD 12 mg/dL (7-18)
[2017-03-26] MEDS ORDERED: TOLVAPTAN 15 MG TABLET PO ONE (09:45)
[2017-03-26] MEDS ORDERED: VITAD1000 PO (11:31)
[2017-03-26] MEDS ORDERED: LISI-661 PO (11:32)
[2017-03-26] MEDS ORDERED: PANT40I IV (11:33)
[2017-03-26] MEDS ORDERED: NACL1 PO (11:34)
[2017-03-26] MEDS ORDERED: AUD NEB (11:35)
[2017-03-26] MEDS ORDERED: ACET-784 PO (11:35)
[2017-03-26] MEDS ORDERED: BISA10S PR (11:37)
[2017-03-26] MEDS ORDERED: INSNOV SQ (11:38)
[2017-03-26] MEDS ORDERED: IPRNEB IH (11:39)
[2017-03-26] MEDS ORDERED: MOM30 PO (11:39)
[2017-03-26] MEDS ORDERED: ONDA4 IV (11:40)
[2017-03-26] MEDS ORDERED: ZOLP5 PO (11:40)
[2017-03-26] MEDS: INSULIN ASPART 100 UNITS/ML SQ PRN ×3 (12:08→20:47)
[2017-03-26] MEDS: AmLODIPine BESYLATE 5 MG TABLET PO SCH (14:02)
[2017-03-26] MEDS: ZOLPIDEM TARTRATE 5 MG TABLET PO PRN (20:48)
[2017-03-26] MEDS: ACETAMINOPHEN 325 MG TABLET PO PRN (21:13)
[2017-03-27 03:29] VITALS: BP 148/66
[2017-03-27] MEDS: INSULIN ASPART 100 UNITS/ML SQ PRN ×4 (06:20→20:11)
[2017-03-27 07:16] VITALS: BP 172/55
[2017-03-27] MEDS: MULTIVITAMINS, THERAPEUTIC TABLET PO SCH (07:49)
[2017-03-27] MEDS: AmLODIPine BESYLATE 5 MG TABLET PO SCH (07:49)
[2017-03-27] MEDS: PANTOPRAZOLE SODIUM 40 MG DR TABLET PO SCH (07:49)
[2017-03-27] MEDS: DOCUSATE SODIUM 100 MG CAPSULE PO SCH ×3 (07:49→19:47)
[2017-03-27] MEDS: CARVEDILOL 6.25 MG TABLET PO SCH ×2 (07:49→19:47)
[2017-03-27] MEDS: CLOPIDOGREL BISULFATE 75 MG TABLET PO SCH (07:49)
[2017-03-27] MEDS: LISINOPRIL 10 MG TABLET PO SCH (07:49)
[2017-03-27] MEDS: CHOLECALCIFEROL (VIT D3) 1,000 UNITS TABLET PO SCH ×2 (07:49→19:47)
[2017-03-27] MEDS: SODIUM CHLORIDE 1 GM TABLET PO SCH ×4 (07:49→19:47)
[2017-03-27] MEDS: FLUTICASONE/VILANTEROL 100-25 MCG/INH INHALER [14] IH SCH (07:49)
[2017-03-27 11:10] VITALS: BP 176/82
[2017-03-27 12:34] LABS: ANION GAP 8 mmol/L (8-16); CALCIUM, TOTAL 8.8 mg/dL (8.8-10.5); CARBON DIOXIDE 29 mmol/L (22-29); CHLORIDE 95 mmol/L (98-107); CREATININE 0.58 mg/dL (0.60-1.30); GLOMERULAR FILTR. RATE CALC > 60 mL/min (>60); GLUCOSE,RANDOM 141 mg/dL (70-110); POTASSIUM 3.7 mmol/L (3.5-5.1); SODIUM SERUM 132 mmol/L (136-145); UREA NITROGEN, BLOOD 14 mg/dL (7-18)
[2017-03-27] MEDS ORDERED: LACTULOSE 20 GM/30 ML SOLUTION UDCUP PO ONE (14:15)
[2017-03-27 14:23] LABS: GLUCOMETER DEV NAME(LOC) 5S 2N; GLUCOSE,POINT OF CARE 132 MG/DL (70-110)
[2017-03-27 14:23] LABS: GLUCOMETER DEV NAME(LOC) 5S 2N; GLUCOSE,POINT OF CARE 206 MG/DL (70-110)
[2017-03-27 14:23] LABS: GLUCOMETER DEV NAME(LOC) 5S 2N; GLUCOSE,POINT OF CARE 162 MG/DL (70-110)
[2017-03-27 14:24] LABS: GLUCOMETER DEV NAME(LOC) 5S 2N; GLUCOSE,POINT OF CARE 166 MG/DL (70-110)
[2017-03-27 14:27] LABS: GLUCOMETER DEV NAME(LOC) 5S 2N; GLUCOSE,POINT OF CARE 160 MG/DL (70-110)
[2017-03-27 14:27] LABS: GLUCOMETER DEV NAME(LOC) 5S 2N; GLUCOSE,POINT OF CARE 142 MG/DL (70-110)
[2017-03-27 15:04] VITALS: BP 161/85
[2017-03-27] MEDS: HydrALAZINE HCL 10 MG TABLET PO SCH ×2 (16:27→19:47)
[2017-03-27] MEDS: ACETAMINOPHEN 325 MG TABLET PO PRN (18:07)
[2017-03-27] MEDS: ZOLPIDEM TARTRATE 5 MG TABLET PO PRN (19:47)
[2017-03-27] MEDS: ALBUTEROL SULFATE 2.5 MG/0.5 ML NEB SOLUTION NEB PRN (20:08)
[2017-03-27] MEDS: IPRATROPIUM BROMIDE 0.5 MG/2.5 ML NEB SOLUTION NEB PRN (20:08)
[2017-03-27 20:23] VITALS: BP 181/86
[2017-03-27 21:43] LABS: GLUCOMETER DEV NAME(LOC) 5S 2N; GLUCOSE,POINT OF CARE 152 MG/DL (70-110)
[2017-03-27 23:53] VITALS: BP 158/72
[2017-03-28 04:01] VITALS: BP 179/74
[2017-03-28] MEDS: INSULIN ASPART 100 UNITS/ML SQ PRN ×2 (06:40→18:33)
[2017-03-28 07:27] VITALS: BP 139/76
[2017-03-28] MEDS ORDERED: LISINOPRIL 20 MG TABLET PO SCH (09:00)
[2017-03-28] MEDS: MULTIVITAMINS, THERAPEUTIC TABLET PO SCH (10:15)
[2017-03-28] MEDS: FLUTICASONE/VILANTEROL 100-25 MCG/INH INHALER [14] IH SCH (10:15)
[2017-03-28] MEDS: HydrALAZINE HCL 10 MG TABLET PO SCH ×2 (10:15→16:34)
[2017-03-28] MEDS: SODIUM CHLORIDE 1 GM TABLET PO SCH ×2 (10:15→16:34)
[2017-03-28] MEDS: PANTOPRAZOLE SODIUM 40 MG DR TABLET PO SCH (10:16)
[2017-03-28] MEDS: CLOPIDOGREL BISULFATE 75 MG TABLET PO SCH (10:17)
[2017-03-28] MEDS: CHOLECALCIFEROL (VIT D3) 1,000 UNITS TABLET PO SCH (10:17)
[2017-03-28] MEDS: DOCUSATE SODIUM 100 MG CAPSULE PO SCH ×2 (10:17→16:00)
[2017-03-28] MEDS: CARVEDILOL 6.25 MG TABLET PO SCH (10:17)
[2017-03-28 11:33] LABS: ANION GAP 8 mmol/L (8-16); CALCIUM, TOTAL 8.9 mg/dL (8.8-10.5); CARBON DIOXIDE 28 mmol/L (22-29); CHLORIDE 92 mmol/L (98-107); CREATININE 0.64 mg/dL (0.60-1.30); GLOMERULAR FILTR. RATE CALC > 60 mL/min (>60); GLUCOSE,RANDOM 150 mg/dL (70-110); POTASSIUM 3.9 mmol/L (3.5-5.1); SODIUM SERUM 128 mmol/L (136-145); UREA NITROGEN, BLOOD 14 mg/dL (7-18)
[2017-03-28 11:53] VITALS: BP 141/88
[2017-03-28 13:32] LABS: APPEARANCE,URINE CLEAR (CLEAR); BILIRUBIN,URINE NEGATIVE (NEGATIVE); GLUCOSE, URINE (UA) >=1000 mg/dL (NEGATIVE); KETONES,URINE NEGATIVE (NEGATIVE); LEUKOCYTE ESTERASE ,URINE NEGATIVE (NEGATIVE); NITRATE,URINE NEGATIVE (NEGATIVE); OCCULT BLOOD,URINE NEGATIVE (NEGATIVE); PH,URINE 6.5 (5.0-8.0); PROTEIN,URINE TRACE (NEGATIVE); UROBILINOGEN,URINE 0.2 mg/dL (<=1.0)
[2017-03-28 13:45] LABS: BACTERIA,URINE Rare /HPF (None Seen); RBC,URINE 0-2 /HPF (0-2); SQUAMOUS EPITHELIAL CELL,UR Moderate /LPF (None Seen); WBC,URINE 0-2 /HPF (0-5)
[2017-03-28 15:16] VITALS: BP 128/85
[2017-03-28] MEDS ORDERED: HYDR10TA31 PO (17:03)
[2017-03-29 07:49] LABS: GLUCOMETER DEV NAME(LOC) 5S 2N; GLUCOSE,POINT OF CARE 169 MG/DL (70-110)
[2017-03-29 07:49] LABS: GLUCOMETER DEV NAME(LOC) 5S 2N; GLUCOSE,POINT OF CARE 180 MG/DL (70-110)
[2017-03-29 07:49] LABS: GLUCOMETER DEV NAME(LOC) 5S 2N; GLUCOSE,POINT OF CARE 114 MG/DL (70-110)
[2017-03-29] MEDS ORDERED: LISINOPRIL 20 MG TABLET PO SCH (09:00)
[2017-03-29 19:49] LABS: GLUCOMETER DEV NAME(LOC) 5S 1L; GLUCOSE,POINT OF CARE 216 MG/DL (70-110)
[2017-03-29 19:49] LABS: GLUCOMETER DEV NAME(LOC) 5S 1L; GLUCOSE,POINT OF CARE 156 MG/DL (70-110)
[2017-03-29 19:49] LABS: GLUCOMETER DEV NAME(LOC) 5S 1L; GLUCOSE,POINT OF CARE 204 MG/DL (70-110)
[2017-03-29 19:49] LABS: GLUCOMETER DEV NAME(LOC) 5S 1L; GLUCOSE,POINT OF CARE 174 MG/DL (70-110)
[2017-03-29 19:49] LABS: GLUCOMETER DEV NAME(LOC) 5S 1L; GLUCOSE,POINT OF CARE 144 MG/DL (70-110)
== END 2017-03-28 19:20 | DRG 439 ==
LOC: EMS 17:34 → 5S 20:28
PROVIDERS: ADMIT Internal Medicine; ATTEND Internal Medicine
DX: K85.90 Acute pancreatitis without necrosis or infection, unspecified (principal); E22.2 Syndrome of inappropriate secretion of antidiuretic hormone; E87.0 Hyperosmolality and hypernatremia; I11.0 Hypertensive heart disease with heart failure; I50.9 Heart failure, unspecified; E11.9 Type 2 diabetes mellitus without complications; I10 Essential (primary) hypertension; K29.70 Gastritis, unspecified, without bleeding; E78.00 Pure hypercholesterolemia, unspecified; I25.10 Atherosclerotic heart disease of native coronary artery without angina pectoris; K58.9 Irritable bowel syndrome, unspecified; J44.9 Chronic obstructive pulmonary disease, unspecified; Z90.49 Acquired absence of other specified parts of digestive tract
CPT/HCPCS: 71020; 71250; 74000; 74010; 76700; 82306; 82607; 82746; 82948; 82962; 83036; 83735; 83935; 84100; 84300; 84439; 84443; 87081; 93005; 94640; 96360; 97116; 97161; 97530; 99291; C9113; J1940; J2060; J2405; J7030

== ENCOUNTER 2017-05-13 13:59 | Emergency (ER) | payer MEDICARE, OTHER ==
[~2017-05-13] VITALS: Ht 147.3 cm; Wt 59.1 kg
[~2017-05-13 13:59] MED LIST changes: +ACET-784 PO; +AUD NEB; +BISA10S PR; +HYDR10TA31 PO; +INSNOV SQ; +IPRNEB IH; +LISI-661 PO; +MOM30 PO; +ONDA4 IV; +PANT40I IV; +VITAD1000 PO; +ZOLP5 PO
[2017-05-13 16:21] LABS: BASOPHILS # (AUTO) 0.02 K/uL (0.00-0.20); BASOPHILS % (AUTO) 0.2 % (0.0-2.0); EOSINOPHILS # (AUTO) 0.13 K/uL (0.00-0.70); EOSINOPHILS % (AUTO) 1.35 % (1.0-6.0); HEMATOCRIT 33.8 % (36-46); HEMOGLOBIN 11.4 g/dL (12.0-16.0); LYMPHOCYTES # (AUTO) 0.7 K/uL (1.0-4.8); LYMPHOCYTES % (AUTO) 7.4 % (22.0-44.0); MEAN CORPUSCULAR HEMOGLOBIN 30.3 pg (26.0-34.0); MEAN CORPUSCULAR HGB CONC 33.6 G/dL (31.0-37.0); MEAN CORPUSCULAR VOLUME 90 fL (80-100); MONOCYTES # (AUTO) 0.6 K/uL (0.1-1.0); MONOCYTES % (AUTO) 6.7 % (2.0-9.0); NEUTROPHILS # (AUTO) 8.2 K/uL (1.8-7.7); NEUTROPHILS % (AUTO) 84.4 % (40.0-70.0); PLATELET COUNT (AUTO) 292 K/uL (150-450); RED BLOOD CELL COUNT(AUTO) 3.76 MIL/uL (4.00-5.20); RED CELL DISTRIBUTION WIDTH 12.7 % (11.5-14.5)
[2017-05-13 16:26] LABS: ANION GAP 8 mmol/L (8-16); CALCIUM, TOTAL 8.9 mg/dL (8.8-10.5); CARBON DIOXIDE 30 mmol/L (22-29); CHLORIDE 91 mmol/L (98-107); CREATININE 0.86 mg/dL (0.60-1.30); GLOMERULAR FILTR. RATE CALC > 60 mL/min (>60); GLUCOSE,RANDOM 156 mg/dL (70-110); SODIUM SERUM 129 mmol/L (136-145); UREA NITROGEN, BLOOD 17 mg/dL (7-18)
[2017-05-13 16:33] LABS: ALANINE AMINOTRANSFERASE 43 U/L (12-78); ALBUMIN 3.3 g/dL (3.4-5.0); ALKALINE PHOSPHATASE 76 U/L (46-116); ASPARTATE AMINOTRANSFERASE 26 U/L (15-37); BILIRUBIN,TOTAL 0.3 mg/dL (0.1-1.0)
[2017-05-13 16:54] LABS: B-TYPE NATRIURETIC PEPTIDE 379 pg/mL (0-100)
[2017-05-13] MEDS ORDERED: ACETAMINOPHEN 500 MG TABLET PO ONE (17:00)
[2017-05-13] MEDS ORDERED: FUROSEMIDE 40 MG/4 ML VIAL IVP ONE (17:15)
[2017-05-13] MEDS ORDERED: ALBUTEROL SULFATE 5 MG/ML 20 ML NEB SOLN [BULK] NEB ONE (17:15)
[2017-05-13] MEDS ORDERED: IPRATROPIUM BROMIDE 0.5 MG/2.5 ML NEB SOLUTION NEB ONE (17:15)
[2017-05-13 17:31] LABS: BILIRUBIN,URINE NEGATIVE (NEGATIVE); GLUCOSE, URINE (UA) NEGATIVE (NEGATIVE); KETONES,URINE NEGATIVE (NEGATIVE); LEUKOCYTE ESTERASE ,URINE NEGATIVE (NEGATIVE); NITRATE,URINE NEGATIVE (NEGATIVE); OCCULT BLOOD,URINE NEGATIVE (NEGATIVE); PROTEIN,URINE NEGATIVE (NEGATIVE); UROBILINOGEN,URINE 0.2 mg/dL (<=1.0)
[2017-05-13 18:16] LABS: APPEARANCE,URINE CLEAR (CLEAR)
[2017-05-13 18:17] LABS: BACTERIA,URINE None Seen /HPF (None Seen); RBC,URINE None Seen /HPF (0-2); WBC,URINE None Seen /HPF (0-5)
[2017-05-13 18:27] VITALS: BP 144/63
== END 2017-05-13 19:03 | disposition home or self-care (01) ==
LOC: EMS 14:02
DX: E87.1 Hypo-osmolality and hyponatremia (principal); I25.10 Atherosclerotic heart disease of native coronary artery without angina pectoris; I11.0 Hypertensive heart disease with heart failure; I50.9 Heart failure, unspecified; E11.9 Type 2 diabetes mellitus without complications; E78.00 Pure hypercholesterolemia, unspecified; J44.9 Chronic obstructive pulmonary disease, unspecified; K21.9 Gastro-esophageal reflux disease without esophagitis; Z79.4 Long term (current) use of insulin
CPT/HCPCS: 36415; 51701; 70450; 71010; 80053; 81001; 83605; 83880; 84484; 85025; 94640; 96374; 99285; J1940

== ENCOUNTER 2017-05-19 13:28 | Inpatient (IN) | payer MEDICARE, OTHER ==
[~2017-05-19] VITALS: Ht 152.4 cm; Wt 71.4 kg
[2017-05-19] MEDS ORDERED: CITA10TA68 PO (14:30)
[2017-05-19] MEDS ORDERED: ALPR0.5T8 PO (14:30)
[2017-05-19] MEDS ORDERED: FLUT1AER IH (14:30)
[2017-05-19 15:34] LABS: BASOPHILS # (AUTO) 0.04 K/uL (0.00-0.20); BASOPHILS % (AUTO) 0.5 % (0.0-2.0); EOSINOPHILS # (AUTO) 0.07 K/uL (0.00-0.70); EOSINOPHILS % (AUTO) 0.93 % (1.0-6.0); HEMOGLOBIN 12.2 g/dL (12.0-16.0); LYMPHOCYTES # (AUTO) 0.3 K/uL (1.0-4.8); LYMPHOCYTES % (AUTO) 4.2 % (22.0-44.0); MEAN CORPUSCULAR HEMOGLOBIN 29.5 pg (26.0-34.0); MEAN CORPUSCULAR VOLUME 90 fL (80-100); MONOCYTES # (AUTO) 0.8 K/uL (0.1-1.0); MONOCYTES % (AUTO) 9.8 % (2.0-9.0); NEUTROPHILS # (AUTO) 6.7 K/uL (1.8-7.7); NEUTROPHILS % (AUTO) 84.5 % (40.0-70.0); PLATELET COUNT (AUTO) 298 K/uL (150-450); RED BLOOD CELL COUNT(AUTO) 4.13 MIL/uL (4.00-5.20); RED CELL DISTRIBUTION WIDTH 12.9 % (11.5-14.5)
[2017-05-19 15:58] LABS: ALANINE AMINOTRANSFERASE 21 U/L (12-78); ALBUMIN 3.5 g/dL (3.4-5.0); ALKALINE PHOSPHATASE 84 U/L (46-116); ANION GAP 9 mmol/L (8-16); ASPARTATE AMINOTRANSFERASE 23 U/L (15-37); BILIRUBIN,TOTAL 0.3 mg/dL (0.1-1.0); CALCIUM, TOTAL 8.7 mg/dL (8.8-10.5); CARBON DIOXIDE 27 mmol/L (22-29); CHLORIDE 87 mmol/L (98-107); CREATININE 0.71 mg/dL (0.60-1.30); GLOMERULAR FILTR. RATE CALC > 60 mL/min (>60); GLUCOSE,RANDOM 154 mg/dL (70-110); POTASSIUM 3.9 mmol/L (3.5-5.1); TOTAL PROTEIN, SERUM 7.5 g/dL (6.4-8.2); UREA NITROGEN, BLOOD 10 mg/dL (7-18)
[2017-05-19 16:06] LABS: SODIUM SERUM 123 mmol/L (136-145)
[2017-05-19 16:08] LABS: B-TYPE NATRIURETIC PEPTIDE 456 pg/mL (0-100)
[2017-05-19 16:40] LABS: INFLUENZA TYPE A POSITIVE FOR TYPE A (NEGATIVE); INFLUENZA TYPE B NEGATIVE FOR TYPE B (NEGATIVE)
[2017-05-19] MEDS ORDERED: SODIUM CHLORIDE 0.9% 1,000 ML IV ONE (17:00)
[2017-05-19] MEDS ORDERED: OSELTAMIVIR PHOSPHATE 75 MG CAPSULE PO ONE (17:00)
[2017-05-19 17:41] LABS: LIPASE 197 U/L (73-393)
[2017-05-19] MEDS ORDERED: ACETAMINOPHEN 325 MG TABLET PO PRN (19:00)
[2017-05-19] MEDS ORDERED: 0.9% SODIUM CHLORIDE 10 ML SYRINGE IVP PRN (19:00)
[2017-05-19] MEDS ORDERED: LEVOFLOXACIN 500 MG/D5% WATER 100 ML IV SCH (19:00)
[2017-05-19] MEDS ORDERED: ONDANSETRON HCL 4 MG/2 ML VIAL IVP PRN (19:00)
[2017-05-19] MEDS ORDERED: 0.9% SODIUM CHLORIDE 5 ML NEB SOLUTION NEB ONE (19:56)
[2017-05-19] MEDS ORDERED: ALBUTEROL SULFATE 5 MG/ML 20 ML NEB SOLN [BULK] NEB ONE (20:00)
[2017-05-20] VITALS (11 sets, daily range): BP systolic 77–209; BP diastolic 33–108
[2017-05-20] MEDS ORDERED: AmLODIPine BESYLATE 5 MG TABLET PO ONE (02:00)
[2017-05-20] MEDS: ALBUTEROL SULFATE 2.5 MG/0.5 ML NEB SOLUTION NEB SCH ×6 (02:48→23:46)
[2017-05-20] MEDS: IPRATROPIUM BROMIDE 0.5 MG/2.5 ML NEB SOLUTION NEB SCH ×6 (02:48→23:46)
[2017-05-20] MEDS ORDERED: DEXTROSE 50%-WATER 25 GM/50 ML SYRINGE IVP PRN (03:30)
[2017-05-20] MEDS ORDERED: ZOLPIDEM TARTRATE 5 MG TABLET PO PRN (03:45)
[2017-05-20] MEDS ORDERED: INFLUENZA VIRUS VACCINE QVS 2017-18 (3YR+)/PF 60 MCG/0.5 ML SYRINGE IM ONE (04:45)
[2017-05-20] MEDS: INSULIN ASPART 100 UNITS/ML SQ PRN (06:20)
[2017-05-20 07:28] LABS: BASOPHILS # (AUTO) 0.01 K/uL (0.00-0.20); BASOPHILS % (AUTO) 0.1 % (0.0-2.0); EOSINOPHILS % (AUTO) 0.03 % (1.0-6.0); HEMATOCRIT 37.3 % (36-46); HEMOGLOBIN 12.3 g/dL (12.0-16.0); LYMPHOCYTES # (AUTO) 0.4 K/uL (1.0-4.8); LYMPHOCYTES % (AUTO) 3.6 % (22.0-44.0); MEAN CORPUSCULAR HEMOGLOBIN 29.8 pg (26.0-34.0); MEAN CORPUSCULAR VOLUME 90 fL (80-100); MONOCYTES # (AUTO) 0.9 K/uL (0.1-1.0); MONOCYTES % (AUTO) 7.4 % (2.0-9.0); NEUTROPHILS # (AUTO) 11.1 K/uL (1.8-7.7); PLATELET COUNT (AUTO) 300 K/uL (150-450); RED BLOOD CELL COUNT(AUTO) 4.14 MIL/uL (4.00-5.20)
[2017-05-20 07:33] LABS: ALANINE AMINOTRANSFERASE 34 U/L (12-78); ALBUMIN 3.4 g/dL (3.4-5.0); ALKALINE PHOSPHATASE 85 U/L (46-116); ANION GAP 9 mmol/L (8-16); ASPARTATE AMINOTRANSFERASE 28 U/L (15-37); BILIRUBIN,TOTAL 0.4 mg/dL (0.1-1.0); CALCIUM, TOTAL 8.8 mg/dL (8.8-10.5); CARBON DIOXIDE 27 mmol/L (22-29); CHLORIDE 85 mmol/L (98-107); CREATININE 0.73 mg/dL (0.60-1.30); GLOMERULAR FILTR. RATE CALC > 60 mL/min (>60); GLUCOSE,RANDOM 139 mg/dL (70-110); POTASSIUM 3.5 mmol/L (3.5-5.1); TOTAL PROTEIN, SERUM 7.5 g/dL (6.4-8.2); UREA NITROGEN, BLOOD 10 mg/dL (7-18)
[2017-05-20 07:42] LABS: SODIUM SERUM 121 mmol/L (136-145)
[2017-05-20 07:48] LABS: GLUCOMETER DEV NAME(LOC) 5N 2R; GLUCOSE,POINT OF CARE 154 MG/DL (70-110)
[2017-05-20] MEDS: SitaGLIPtin PHOSPHATE 50 MG TABLET PO SCH (08:28)
[2017-05-20] MEDS: MULTIVITAMINS, THERAPEUTIC TABLET PO SCH (08:28)
[2017-05-20] MEDS: FLUTICASONE/VILANTEROL 100-25 MCG/INH INHALER [14] IH SCH (08:28)
[2017-05-20] MEDS: CLOPIDOGREL BISULFATE 75 MG TABLET PO SCH (08:28)
[2017-05-20] MEDS: SODIUM CHLORIDE 1 GM TABLET PO SCH ×4 (08:28→21:00)
[2017-05-20] MEDS: ALPRAZolam 1 MG TABLET PO SCH ×2 (08:28→21:00)
[2017-05-20] MEDS: CITALOPRAM HYDROBROMIDE 10 MG TABLET PO SCH (08:29)
[2017-05-20] MEDS ORDERED: LISINOPRIL 10 MG TABLET PO SCH (09:00)
[2017-05-20] MEDS ORDERED: CARVEDILOL 6.25 MG TABLET PO SCH (09:00)
[2017-05-20] MEDS: OSELTAMIVIR PHOSPHATE 75 MG CAPSULE PO SCH ×2 (09:51→21:00)
[2017-05-20] MEDS ORDERED: AmLODIPine BESYLATE 5 MG TABLET PO SCH (11:00)
[2017-05-20] MEDS ORDERED: ACETAMINOPHEN 325 MG TABLET PO PRN (11:15)
[2017-05-20 13:27] LABS: GLUCOMETER DEV NAME(LOC) 5N 1M; GLUCOSE,POINT OF CARE 142 MG/DL (70-110)
[2017-05-20] MEDS ORDERED: ACETAMINOPHEN 650 MG RECTAL SUPPOSITORY PR PRN (14:00)
[2017-05-20] MEDS ORDERED: SODIUM CHLORIDE 0.9% 250 ML IV ONE (17:15)
[2017-05-20 19:00] LABS: CALCIUM, TOTAL 8.4 mg/dL (8.8-10.5); CREATININE 1.16 mg/dL (0.60-1.30); POTASSIUM 3.7 mmol/L (3.5-5.1)
[2017-05-20 20:07] LABS: GLUCOMETER DEV NAME(LOC) 5N 1M; GLUCOSE,POINT OF CARE 125 MG/DL (70-110)
[2017-05-20] MEDS ORDERED: SODIUM CHLORIDE 3% 500 ML IV SCH (20:45)
[2017-05-20 20:53] LABS: POTASSIUM,URINE RANDOM 48 mmol/L (12-75); SODIUM,URINE RANDOM 41 mmol/l (20-110)
[2017-05-20 20:58] LABS: OSMOLALITY,URINE 524 mOS/kg (50-1200)
[2017-05-21] VITALS (7 sets, daily range): BP systolic 110–161; BP diastolic 58–96
[2017-05-21 00:43] LABS: GLUCOMETER DEV NAME(LOC) 5N 1M; GLUCOSE,POINT OF CARE 110 MG/DL (70-110)
[2017-05-21 01:07] LABS: CALCIUM, TOTAL 8.4 mg/dL (8.8-10.5); CREATININE 0.99 mg/dL (0.60-1.30); POTASSIUM 3.3 mmol/L (3.5-5.1)
[2017-05-21 02:53] LABS: APPEARANCE,URINE CLEAR (CLEAR); BILIRUBIN,URINE NEGATIVE (NEGATIVE); GLUCOSE, URINE (UA) 100 mg/dL (NEGATIVE); KETONES,URINE NEGATIVE (NEGATIVE); LEUKOCYTE ESTERASE ,URINE NEGATIVE (NEGATIVE); NITRATE,URINE NEGATIVE (NEGATIVE); OCCULT BLOOD,URINE SMALL (NEGATIVE); PROTEIN,URINE SEE CONFIRM (NEGATIVE); UROBILINOGEN,URINE 0.2 mg/dL (<=1.0)
[2017-05-21] MEDS: IPRATROPIUM BROMIDE 0.5 MG/2.5 ML NEB SOLUTION NEB SCH ×6 (03:02→22:54)
[2017-05-21] MEDS: ALBUTEROL SULFATE 2.5 MG/0.5 ML NEB SOLUTION NEB SCH ×6 (03:02→22:54)
[2017-05-21 03:15] LABS: SULFOSALICYLIC ACID,URINE 1+ (Negative)
[2017-05-21 03:16] LABS: BACTERIA,URINE Rare /HPF (None Seen); WBC,URINE 0-2 /HPF (0-5)
[2017-05-21 06:43] LABS: GLUCOMETER DEV NAME(LOC) 5N 1M; GLUCOSE,POINT OF CARE 114 MG/DL (70-110)
[2017-05-21 07:16] LABS: BASOPHILS % (AUTO) 0.3 % (0.0-2.0); EOSINOPHILS % (AUTO) 1.3 % (1.0-6.0); HEMATOCRIT 34.3 % (36-46); HEMOGLOBIN 11.8 g/dL (12.0-16.0); LYMPHOCYTES # (AUTO) 0.5 K/uL (1.0-4.8); LYMPHOCYTES % (AUTO) 6.5 % (22.0-44.0); MEAN CORPUSCULAR HEMOGLOBIN 30.7 pg (26.0-34.0); MEAN CORPUSCULAR HGB CONC 34.3 G/dL (31.0-37.0); MEAN CORPUSCULAR VOLUME 90 fL (80-100); MONOCYTES # (AUTO) 0.8 K/uL (0.1-1.0); MONOCYTES % (AUTO) 10.7 % (2.0-9.0); NEUTROPHILS # (AUTO) 5.9 K/uL (1.8-7.7); NEUTROPHILS % (AUTO) 81.2 % (40.0-70.0); PLATELET COUNT (AUTO) 266 K/uL (150-450); RED BLOOD CELL COUNT(AUTO) 3.83 MIL/uL (4.00-5.20); RED CELL DISTRIBUTION WIDTH 12.8 % (11.5-14.5)
[2017-05-21 07:57] LABS: CALCIUM, TOTAL 8.7 mg/dL (8.8-10.5); CREATININE 0.9 mg/dL (0.60-1.30); POTASSIUM 3.4 mmol/L (3.5-5.1)
[2017-05-21] MEDS: CLOPIDOGREL BISULFATE 75 MG TABLET PO SCH (08:34)
[2017-05-21] MEDS: SODIUM CHLORIDE 1 GM TABLET PO SCH ×3 (08:34→20:59)
[2017-05-21] MEDS: MULTIVITAMINS, THERAPEUTIC TABLET PO SCH (08:34)
[2017-05-21] MEDS: CITALOPRAM HYDROBROMIDE 10 MG TABLET PO SCH (08:34)
[2017-05-21] MEDS: FLUTICASONE/VILANTEROL 100-25 MCG/INH INHALER [14] IH SCH (08:34)
[2017-05-21] MEDS: SitaGLIPtin PHOSPHATE 50 MG TABLET PO SCH (08:34)
[2017-05-21] MEDS: ALPRAZolam 1 MG TABLET PO SCH ×2 (08:34→20:59)
[2017-05-21] MEDS: OSELTAMIVIR PHOSPHATE 75 MG CAPSULE PO SCH ×2 (08:35→20:59)
[2017-05-21 14:22] LABS: GLUCOMETER DEV NAME(LOC) 5N 1M; GLUCOSE,POINT OF CARE 110 MG/DL (70-110)
[2017-05-21 16:20] LABS: ANION GAP 3 mmol/L (8-16); CARBON DIOXIDE 32 mmol/L (22-29); CHLORIDE 93 mmol/L (98-107); CREATININE 0.88 mg/dL (0.60-1.30); GLOMERULAR FILTR. RATE CALC > 60 mL/min (>60); GLUCOSE,RANDOM 142 mg/dL (70-110); POTASSIUM 3.7 mmol/L (3.5-5.1); SODIUM SERUM 128 mmol/L (136-145); UREA NITROGEN, BLOOD 22 mg/dL (7-18)
[2017-05-21] MEDS: INSULIN ASPART 100 UNITS/ML SQ PRN (18:18)
[2017-05-22] VITALS (9 sets, daily range): BP systolic 124–209; BP diastolic 47–106
[2017-05-22] MEDS: ALBUTEROL SULFATE 2.5 MG/0.5 ML NEB SOLUTION NEB SCH ×6 (03:06→23:00)
[2017-05-22] MEDS: IPRATROPIUM BROMIDE 0.5 MG/2.5 ML NEB SOLUTION NEB SCH ×6 (03:06→23:00)
[2017-05-22 08:07] LABS: HEMOGLOBIN A1C 6.5 % (4.5-6.2)
[2017-05-22] MEDS: CLOPIDOGREL BISULFATE 75 MG TABLET PO SCH (08:24)
[2017-05-22] MEDS: HydrALAZINE HCL 20 MG/ML VIAL IVP PRN (08:24)
[2017-05-22] MEDS: LISINOPRIL 5 MG TABLET PO SCH (08:24)
[2017-05-22] MEDS: OSELTAMIVIR PHOSPHATE 75 MG CAPSULE PO SCH ×2 (08:25→21:08)
[2017-05-22] MEDS: MULTIVITAMINS, THERAPEUTIC TABLET PO SCH (08:25)
[2017-05-22] MEDS: SitaGLIPtin PHOSPHATE 50 MG TABLET PO SCH (08:25)
[2017-05-22] MEDS: CITALOPRAM HYDROBROMIDE 10 MG TABLET PO SCH (08:25)
[2017-05-22] MEDS: SODIUM CHLORIDE 1 GM TABLET PO SCH ×4 (08:25→21:08)
[2017-05-22] MEDS: ALPRAZolam 1 MG TABLET PO SCH ×2 (08:25→21:00)
[2017-05-22] MEDS: FLUTICASONE/VILANTEROL 100-25 MCG/INH INHALER [14] IH SCH (08:26)
[2017-05-22 08:32] LABS: ANION GAP 4 mmol/L (8-16); CALCIUM, TOTAL 8.8 mg/dL (8.8-10.5); CARBON DIOXIDE 31 mmol/L (22-29); CHLORIDE 96 mmol/L (98-107); CREATININE 0.76 mg/dL (0.60-1.30); GLOMERULAR FILTR. RATE CALC > 60 mL/min (>60); GLUCOSE,RANDOM 110 mg/dL (70-110); PHOSPHORUS 3.4 mg/dL (2.5-4.9); POTASSIUM 3.9 mmol/L (3.5-5.1); SODIUM SERUM 131 mmol/L (136-145); THYROID STIMULATING HORMONE 1.03 uIU/mL (0.36-3.74); UREA NITROGEN, BLOOD 19 mg/dL (7-18)
[2017-05-22] MEDS: CARVEDILOL 6.25 MG TABLET PO SCH ×2 (09:19→21:08)
[2017-05-22 17:38] LABS: GLUCOMETER DEV NAME(LOC) 5N 1M; GLUCOSE,POINT OF CARE 139 MG/DL (70-110)
[2017-05-22 17:38] LABS: GLUCOMETER DEV NAME(LOC) 5N 1M; GLUCOSE,POINT OF CARE 128 MG/DL (70-110)
[2017-05-22 20:08] LABS: GLUCOMETER DEV NAME(LOC) 5N 2R; GLUCOSE,POINT OF CARE 143 MG/DL (70-110)
[2017-05-22 20:08] LABS: GLUCOMETER DEV NAME(LOC) 5N 2R; GLUCOSE,POINT OF CARE 158 MG/DL (70-110)
[2017-05-23] MEDS: IPRATROPIUM BROMIDE 0.5 MG/2.5 ML NEB SOLUTION NEB SCH ×6 (02:17→23:16)
[2017-05-23] MEDS: ALBUTEROL SULFATE 2.5 MG/0.5 ML NEB SOLUTION NEB SCH ×6 (02:17→23:16)
[2017-05-23 04:18] VITALS: BP 146/59
[2017-05-23 06:53] LABS: GLUCOMETER DEV NAME(LOC) 5N 2R; GLUCOSE,POINT OF CARE 146 MG/DL (70-110)
[2017-05-23 06:53] LABS: GLUCOMETER DEV NAME(LOC) 5N 2R; GLUCOSE,POINT OF CARE 120 MG/DL (70-110)
[2017-05-23 07:23] VITALS: BP 156/66
[2017-05-23] MEDS: FLUTICASONE/VILANTEROL 100-25 MCG/INH INHALER [14] IH SCH (07:55)
[2017-05-23] MEDS: LISINOPRIL 5 MG TABLET PO SCH (07:55)
[2017-05-23] MEDS: CLOPIDOGREL BISULFATE 75 MG TABLET PO SCH (07:55)
[2017-05-23] MEDS: CITALOPRAM HYDROBROMIDE 10 MG TABLET PO SCH (07:56)
[2017-05-23] MEDS: SitaGLIPtin PHOSPHATE 50 MG TABLET PO SCH (07:56)
[2017-05-23] MEDS: CARVEDILOL 6.25 MG TABLET PO SCH ×2 (07:56→20:15)
[2017-05-23] MEDS: SODIUM CHLORIDE 1 GM TABLET PO SCH ×4 (07:56→20:15)
[2017-05-23] MEDS: OSELTAMIVIR PHOSPHATE 75 MG CAPSULE PO SCH ×2 (07:56→20:15)
[2017-05-23] MEDS: ALPRAZolam 1 MG TABLET PO SCH ×2 (07:56→20:15)
[2017-05-23] MEDS: MULTIVITAMINS, THERAPEUTIC TABLET PO SCH (07:56)
[2017-05-23 09:19] LABS: ANION GAP 6 mmol/L (8-16); CALCIUM, TOTAL 9.2 mg/dL (8.8-10.5); CARBON DIOXIDE 32 mmol/L (22-29); CHLORIDE 97 mmol/L (98-107); CREATININE 0.68 mg/dL (0.60-1.30); GLOMERULAR FILTR. RATE CALC > 60 mL/min (>60); GLUCOSE,RANDOM 101 mg/dL (70-110); PHOSPHORUS 3.5 mg/dL (2.5-4.9); POTASSIUM 3.7 mmol/L (3.5-5.1); SODIUM SERUM 135 mmol/L (136-145); UREA NITROGEN, BLOOD 22 mg/dL (7-18)
[2017-05-23 12:01] VITALS: BP 141/68
[2017-05-23 16:08] VITALS: BP 138/68
[2017-05-23 20:28] LABS: GLUCOMETER DEV NAME(LOC) 5S 1L; GLUCOSE,POINT OF CARE 133 MG/DL (70-110)
[2017-05-23 20:30] VITALS: BP 143/64
[2017-05-23 23:48] LABS: GLUCOMETER DEV NAME(LOC) 5N 1M; GLUCOSE,POINT OF CARE 104 MG/DL (70-110)
[2017-05-23 23:48] LABS: GLUCOMETER DEV NAME(LOC) 5N 2R; GLUCOSE,POINT OF CARE 149 MG/DL (70-110)
[2017-05-23 23:48] LABS: GLUCOMETER DEV NAME(LOC) 5N 2R; GLUCOSE,POINT OF CARE 158 MG/DL (70-110)
[2017-05-23 23:49] VITALS: BP 157/74
[2017-05-24] MEDS: IPRATROPIUM BROMIDE 0.5 MG/2.5 ML NEB SOLUTION NEB SCH ×4 (04:03→15:28)
[2017-05-24] MEDS: ALBUTEROL SULFATE 2.5 MG/0.5 ML NEB SOLUTION NEB SCH ×4 (04:03→15:28)
[2017-05-24 05:00] VITALS: BP 179/92
[2017-05-24] MEDS: HydrALAZINE HCL 20 MG/ML VIAL IVP PRN (06:30)
[2017-05-24 07:54] VITALS: BP 162/75
[2017-05-24] MEDS: SODIUM CHLORIDE 1 GM TABLET PO SCH (08:07)
[2017-05-24] MEDS: LISINOPRIL 5 MG TABLET PO SCH (08:07)
[2017-05-24] MEDS: ALPRAZolam 1 MG TABLET PO SCH (08:07)
[2017-05-24] MEDS: CLOPIDOGREL BISULFATE 75 MG TABLET PO SCH (08:07)
[2017-05-24] MEDS: OSELTAMIVIR PHOSPHATE 75 MG CAPSULE PO SCH (08:07)
[2017-05-24] MEDS: FLUTICASONE/VILANTEROL 100-25 MCG/INH INHALER [14] IH SCH (08:07)
[2017-05-24] MEDS: SitaGLIPtin PHOSPHATE 50 MG TABLET PO SCH (08:07)
[2017-05-24] MEDS: CARVEDILOL 6.25 MG TABLET PO SCH (08:07)
[2017-05-24] MEDS: CITALOPRAM HYDROBROMIDE 10 MG TABLET PO SCH (08:07)
[2017-05-24] MEDS: MULTIVITAMINS, THERAPEUTIC TABLET PO SCH (08:08)
[2017-05-24 08:32] LABS: ANION GAP 7 mmol/L (8-16); CALCIUM, TOTAL 9.1 mg/dL (8.8-10.5); CARBON DIOXIDE 31 mmol/L (22-29); CHLORIDE 99 mmol/L (98-107); CREATININE 0.66 mg/dL (0.60-1.30); GLOMERULAR FILTR. RATE CALC > 60 mL/min (>60); GLUCOSE,RANDOM 111 mg/dL (70-110); PHOSPHORUS 2.7 mg/dL (2.5-4.9); POTASSIUM 3.6 mmol/L (3.5-5.1); SODIUM SERUM 137 mmol/L (136-145); UREA NITROGEN, BLOOD 17 mg/dL (7-18)
[2017-05-24] MEDS ORDERED: SODIUM PHOS/SODIUM BIPHOS 133 ML ENEMA PR PRN (10:30)
[2017-05-24 11:38] VITALS: BP 141/71
[2017-05-24] MEDS ORDERED: AUD NEB (14:00)
[2017-05-24] MEDS ORDERED: IPRNEB IH (14:01)
[2017-05-24] MEDS ORDERED: OSEL75 PO (14:01)
[2017-05-24] MEDS ORDERED: ACET-2116 PO (14:03)
[2017-05-24] MEDS ORDERED: HYDR20I IVP (14:04)
[2017-05-24] MEDS ORDERED: FE PR (14:05)
[2017-05-24] MEDS ORDERED: SODIUM CHLORIDE 1 GM TABLET PO SCH (16:00)
[2017-05-24 17:00] VITALS: BP 143/80
[2017-05-25 06:39] LABS: GLUCOMETER DEV NAME(LOC) 5N 2R; GLUCOSE,POINT OF CARE 121 MG/DL (70-110)
[2017-05-25 06:39] LABS: GLUCOMETER DEV NAME(LOC) 5N 2R; GLUCOSE,POINT OF CARE 114 MG/DL (70-110)
== END 2017-05-24 17:30 | DRG 872 ==
LOC: EMS 13:33 → 5N 05-20 00:01
PROVIDERS: ADMIT Internal Medicine; ATTEND Internal Medicine
PROC: 3E0234Z Introduction of Serum, Toxoid and Vaccine into Muscle, Percutaneous Approach (ICD-10-PCS; principal; 2017-05-20)
DX: A41.9 Sepsis, unspecified organism (principal); D69.2 Other nonthrombocytopenic purpura; E11.51 Type 2 diabetes mellitus with diabetic peripheral angiopathy without gangrene; E22.2 Syndrome of inappropriate secretion of antidiuretic hormone; I50.9 Heart failure, unspecified; I11.0 Hypertensive heart disease with heart failure; J09.X2 Influenza due to identified novel influenza A virus with other respiratory manifestations; R13.10 Dysphagia, unspecified; E86.0 Dehydration; E11.9 Type 2 diabetes mellitus without complications; J44.9 Chronic obstructive pulmonary disease, unspecified; E78.00 Pure hypercholesterolemia, unspecified; H53.2 Diplopia; I25.10 Atherosclerotic heart disease of native coronary artery without angina pectoris; K21.9 Gastro-esophageal reflux disease without esophagitis; K58.9 Irritable bowel syndrome, unspecified; R04.0 Epistaxis; R29.6 Repeated falls; Z79.4 Long term (current) use of insulin; Z79.899 Other long term (current) drug therapy; Z74.01 Bed confinement status; Z90.49 Acquired absence of other specified parts of digestive tract; Z23 Encounter for immunization
CPT/HCPCS: 70450; 72170; 74010; 82533; 82962; 83036; 83735; 83935; 84100; 84133; 84145; 84300; 84443; 87040; 87449; 87804; 90471; 92610; 93005; 94640; 94667; 94668; 96361; 96365; 97162; 97167; 97530; 97535; 99285; J0360; J1956; J7030; J7050

== ENCOUNTER 2017-05-27 18:16 | Inpatient (IN) | payer MEDICARE, OTHER ==
[~2017-05-27] VITALS: Ht 162.6 cm; Wt 66.3 kg
[~2017-05-27 18:16] MED LIST changes: +ACET-2116 PO; -ACET-784 PO; +ALPR0.5T8 PO; -AMLO-511 PO; -ATOR20TA86 PO; -BENZ-51 PO; -BISA10S PR; +CITA10TA68 PO; -DSS100 PO; -FAMO20 PO; +FE PR; -HYDR10TA31 PO; +HYDR20I IVP; -LISI-662 PO; -MOM30 PO; -ONDA4 PO; +OSEL75 PO; -VITAD1000 PO
[2017-05-27] MEDS: ASPIRIN 81 MG CHEWABLE TABLET PO ONE ×2 (20:27→20:33)
[2017-05-27] MEDS ORDERED: MV-M1TAB2 PO (20:31)
[2017-05-27] MEDS ORDERED: DOCU250C91 PO (20:31)
[2017-05-27] MEDS ORDERED: QUET25TA PO (20:31)
[2017-05-27] MEDS ORDERED: ATOR10TA84 PO (20:31)
[2017-05-27] MEDS ORDERED: HYDR10TA31 PO (20:31)
[2017-05-27 21:09] LABS: BASOPHILS % (AUTO) 0.4 % (0.0-2.0); EOSINOPHILS % (AUTO) 0 % (1.0-6.0); HEMATOCRIT 37.2 % (36-46); HEMOGLOBIN 12.6 g/dL (12.0-16.0); LYMPHOCYTES # (AUTO) 0.7 K/uL (1.0-4.8); LYMPHOCYTES % (AUTO) 4.8 % (22.0-44.0); MEAN CORPUSCULAR HEMOGLOBIN 30.2 pg (26.0-34.0); MEAN CORPUSCULAR HGB CONC 33.8 G/dL (31.0-37.0); MEAN CORPUSCULAR VOLUME 89 fL (80-100); MONOCYTES # (AUTO) 1.2 K/uL (0.1-1.0); MONOCYTES % (AUTO) 8.6 % (2.0-9.0); NEUTROPHILS # (AUTO) 12.1 K/uL (1.8-7.7); PLATELET COUNT (AUTO) 435 K/uL (150-450); RED BLOOD CELL COUNT(AUTO) 4.17 MIL/uL (4.00-5.20); RED CELL DISTRIBUTION WIDTH 13.4 % (11.5-14.5)
[2017-05-27 21:11] LABS: NEUTROPHILS % (AUTO) 86.2 % (40.0-70.0)
[2017-05-27 21:22] LABS: ANION GAP 5 mmol/L (8-16); CALCIUM, TOTAL 9.3 mg/dL (8.8-10.5); CARBON DIOXIDE 32 mmol/L (22-29); CHLORIDE 104 mmol/L (98-107); CREATININE 2.09 mg/dL (0.60-1.30); GLOMERULAR FILTR. RATE CALC 22 mL/min (>60); GLUCOSE,RANDOM 154 mg/dL (70-110); POTASSIUM 4.5 mmol/L (3.5-5.1); SODIUM SERUM 141 mmol/L (136-145); UREA NITROGEN, BLOOD 51 mg/dL (7-18)
[2017-05-27 21:29] LABS: ALANINE AMINOTRANSFERASE 40 U/L (12-78); ALKALINE PHOSPHATASE 94 U/L (46-116); ASPARTATE AMINOTRANSFERASE 25 U/L (15-37); BILIRUBIN,TOTAL 0.7 mg/dL (0.1-1.0); CREATINE KINASE, TOTAL 30 U/L (26-192); LIPASE 115 U/L (73-393); TOTAL PROTEIN, SERUM 7.5 g/dL (6.4-8.2)
[2017-05-27 21:30] LABS: PROTHROMBIN TIME 10.6 SEC (9.4-11.6)
[2017-05-27 21:43] LABS: B-TYPE NATRIURETIC PEPTIDE 195 pg/mL (0-100)
[2017-05-27 21:54] LABS: APPEARANCE,URINE TURBID (CLEAR); GLUCOSE, URINE (UA) NEGATIVE (NEGATIVE); KETONES,URINE TRACE mg/dL (NEGATIVE); LEUKOCYTE ESTERASE ,URINE LARGE (NEGATIVE); NITRATE,URINE NEGATIVE (NEGATIVE); OCCULT BLOOD,URINE NEGATIVE (NEGATIVE); PROTEIN,URINE TRACE (NEGATIVE)
[2017-05-27 22:09] LABS: BACTERIA,URINE Many /HPF (None Seen); BILIRUBIN,URINE PRELIM. POSITIVE (NEGATIVE); RBC,URINE None Seen /HPF (0-2); SQUAMOUS EPITHELIAL CELL,UR Moderate /LPF (None Seen); WBC,URINE 51-100 /HPF (0-5)
[2017-05-27] MEDS ORDERED: FentaNYL CITRATE-PF 100 MCG/2 ML VIAL IVP ONE (23:15)
[2017-05-27] MEDS ORDERED: CefTRIAXone 1 GM/DEXTROSE 50 ML IV ONE (23:15)
[2017-05-28] MEDS ORDERED: ONDANSETRON HCL 4 MG/2 ML VIAL IVP PRN
[2017-05-28] MEDS ORDERED: CefTRIAXone 1 GM/DEXTROSE 50 ML IV ONE
[2017-05-28 05:18] LABS: CALCIUM, TOTAL 8.3 mg/dL (8.8-10.5); CREATININE 1.58 mg/dL (0.60-1.30); POTASSIUM 4.2 mmol/L (3.5-5.1)
[2017-05-28 12:01] VITALS: BP 140/74
[2017-05-28 13:12] LABS: GLUCOMETER DEV NAME(LOC) 6N 2D; GLUCOSE,POINT OF CARE 129 MG/DL (70-110)
[2017-05-28] MEDS ORDERED: IPRATROPIUM BROMIDE 0.5 MG/2.5 ML NEB SOLUTION NEB PRN ×2 (13:15→18:30)
[2017-05-28] MEDS ORDERED: ALBUTEROL SULFATE 2.5 MG/0.5 ML NEB SOLUTION NEB PRN ×2 (13:15→18:30)
[2017-05-28] MEDS ORDERED: LISINOPRIL 10 MG TABLET PO SCH (13:15)
[2017-05-28] MEDS ORDERED: HydrALAZINE HCL 10 MG TABLET PO SCH (13:15)
[2017-05-28] MEDS ORDERED: DEXTROSE 50%-WATER 25 GM/50 ML SYRINGE IVP PRN (14:15)
[2017-05-28] MEDS: FUROSEMIDE 20 MG TABLET PO SCH (14:36)
[2017-05-28] MEDS: CLOPIDOGREL BISULFATE 75 MG TABLET PO SCH (14:36)
[2017-05-28] MEDS: MULTIVITAMINS WITH MINERALS, THERAPEUTIC TABLET PO SCH (14:36)
[2017-05-28] MEDS: QUEtiapine FUMARATE 25 MG TABLET PO SCH (14:36)
[2017-05-28] MEDS: SitaGLIPtin PHOSPHATE 50 MG TABLET PO SCH (14:37)
[2017-05-28 15:46] VITALS: BP 188/86
[2017-05-28] MEDS ORDERED: PIPERACILLIN SODIUM/TAZOBACTAM 2.25 GM in DEXTROSE 5%-WATER 50 ML IV SCH (16:00)
[2017-05-28] MEDS ORDERED: SODIUM CHLORIDE 0.9% 1,000 ML IV ONE ×2 (16:51)
[2017-05-28] MEDS: SODIUM CHLORIDE 1 GM TABLET PO SCH ×2 (17:02→20:23)
[2017-05-28] MEDS ORDERED: INSULIN ASPART 100 UNITS/ML SQ SCH (17:30)
[2017-05-28 18:22] LABS: GLUCOMETER DEV NAME(LOC) 6N 1E; GLUCOSE,POINT OF CARE 128 MG/DL (70-110)
[2017-05-28] MEDS ORDERED: ACETAMINOPHEN 325 MG TABLET PO PRN ×2 (18:30)
[2017-05-28] MEDS ORDERED: HYDROCODONE/ACETAMINOPHEN 5-325 MG TABLET PO PRN (18:30)
[2017-05-28] MEDS: SODIUM CHLORIDE 0.9% 1,000 ML IV SCH (18:30)
[2017-05-28] MEDS ORDERED: ZOLPIDEM TARTRATE 5 MG TABLET PO PRN (18:30)
[2017-05-28] MEDS ORDERED: 0.9% SODIUM CHLORIDE 10 ML SYRINGE IVP PRN ×3 (18:30)
[2017-05-28] MEDS: LACTULOSE 20 GM/30 ML SOLUTION UDCUP PO PRN (19:05)
[2017-05-28] MEDS: MetroNIDAZOLE 250 MG/NACL 50 ML IV SCH (20:02)
[2017-05-28] MEDS: POLYETHYLENE GLYCOL 3350 17 GM PACKET PO SCH (20:05)
[2017-05-28 20:15] VITALS: BP 149/75
[2017-05-28] MEDS: ATORVASTATIN CALCIUM 10 MG TABLET PO SCH (20:23)
[2017-05-28] MEDS: HEPARIN SODIUM,PORCINE 5,000 UNITS/ML VIAL SQ SCH (20:23)
[2017-05-28] MEDS: CARVEDILOL 6.25 MG TABLET PO SCH (20:23)
[2017-05-28] MEDS: DOCUSATE SODIUM 250 MG CAPSULE PO SCH (20:23)
[2017-05-28] MEDS: ONDANSETRON HCL 4 MG/2 ML VIAL IVP PRN (20:29)
[2017-05-28] MEDS: TIOTROPIUM BROMIDE 18 MCG/INH HANDIHALER [5] IH SCH (20:57)
[2017-05-28] MEDS: CIPROFLOXACIN 200 MG/D5% WATER 100 ML IV SCH (20:57)
[2017-05-28] MEDS: HydrALAZINE HCL 25 MG TABLET PO SCH (20:57)
[2017-05-28] MEDS ORDERED: DOCUSATE SODIUM 250 MG CAPSULE PO SCH (21:00)
[2017-05-28] MEDS ORDERED: ATORVASTATIN CALCIUM 20 MG TABLET PO SCH (21:00)
[2017-05-28] MEDS: CefTAZidime PENTAHYDRATE 1 GM in DEXTROSE 5%-WATER 50 ML IV SCH (23:21)
[2017-05-28 23:30] VITALS: BP 150/74
[2017-05-29] MEDS: LACTULOSE 20 GM/30 ML SOLUTION UDCUP PO PRN ×2 (00:59→06:00)
[2017-05-29] MEDS: MetroNIDAZOLE 250 MG/NACL 50 ML IV SCH ×3 (03:16→20:39)
[2017-05-29 05:30] VITALS: BP 189/92
[2017-05-29] MEDS: PANTOPRAZOLE SODIUM 40 MG DR TABLET PO SCH (05:39)
[2017-05-29] MEDS: HydrALAZINE HCL 25 MG TABLET PO SCH ×2 (06:00→20:40)
[2017-05-29 07:51] VITALS: BP 163/102
[2017-05-29] MEDS: MULTIVITAMINS WITH MINERALS, THERAPEUTIC TABLET PO SCH (09:00)
[2017-05-29] MEDS: TIOTROPIUM BROMIDE 18 MCG/INH HANDIHALER [5] IH SCH (09:00)
[2017-05-29] MEDS: CLOPIDOGREL BISULFATE 75 MG TABLET PO SCH (09:00)
[2017-05-29] MEDS: SitaGLIPtin PHOSPHATE 50 MG TABLET PO SCH (09:00)
[2017-05-29] MEDS: CARVEDILOL 6.25 MG TABLET PO SCH ×2 (09:00→20:40)
[2017-05-29] MEDS: FUROSEMIDE 20 MG TABLET PO SCH (09:00)
[2017-05-29] MEDS: CIPROFLOXACIN 200 MG/D5% WATER 100 ML IV SCH ×2 (09:00→20:39)
[2017-05-29] MEDS: QUEtiapine FUMARATE 25 MG TABLET PO SCH (09:00)
[2017-05-29] MEDS: POLYETHYLENE GLYCOL 3350 17 GM PACKET PO SCH (09:00)
[2017-05-29] MEDS: HEPARIN SODIUM,PORCINE 5,000 UNITS/ML VIAL SQ SCH ×2 (09:00→20:41)
[2017-05-29] MEDS: SODIUM CHLORIDE 1 GM TABLET PO SCH ×4 (09:00→21:00)
[2017-05-29] MEDS: DOCUSATE SODIUM 250 MG CAPSULE PO SCH ×3 (09:00→20:40)
[2017-05-29 09:41] LABS: HEMATOCRIT 38.4 % (36-46); HEMOGLOBIN 12.4 g/dL (12.0-16.0); MEAN CORPUSCULAR HEMOGLOBIN 29.8 pg (26.0-34.0); MEAN CORPUSCULAR HGB CONC 32.2 G/dL (31.0-37.0); MEAN CORPUSCULAR VOLUME 93 fL (80-100); PLATELET COUNT (AUTO) 353 K/uL (150-450); RED BLOOD CELL COUNT(AUTO) 4.15 MIL/uL (4.00-5.20); RED CELL DISTRIBUTION WIDTH 13.5 % (11.5-14.5)
[2017-05-29 10:01] LABS: CALCIUM, TOTAL 8.8 mg/dL (8.8-10.5); POTASSIUM 3.4 mmol/L (3.5-5.1)
[2017-05-29 10:08] LABS: ALBUMIN 2.7 g/dL (3.4-5.0); BILIRUBIN,TOTAL 0.3 mg/dL (0.1-1.0); MAGNESIUM 2.7 mg/dL (1.80-2.40)
[2017-05-29 11:05] LABS: BAND NEUTROPHILS % (MANUAL) 1 % (1-5); LYMPHOCYTES % (MANUAL) 9 % (22-44); MONOCYTES % (MANUAL) 7 % (2-9); SEGMENTED NEUTROPHILS % 83 % (40-70)
[2017-05-29] MEDS: CefTAZidime PENTAHYDRATE 1 GM in DEXTROSE 5%-WATER 50 ML IV SCH ×2 (11:53→23:07)
[2017-05-29 12:06] VITALS: BP 142/88
[2017-05-29] MEDS: SODIUM CHLORIDE 0.9% 1,000 ML IV SCH (14:30)
[2017-05-29 16:10] LABS: ANION GAP 8 mmol/L (8-16); CALCIUM, TOTAL 8.5 mg/dL (8.8-10.5); CARBON DIOXIDE 30 mmol/L (22-29); CHLORIDE 116 mmol/L (98-107); CREATININE 0.85 mg/dL (0.60-1.30); GLOMERULAR FILTR. RATE CALC > 60 mL/min (>60); GLUCOSE,RANDOM 131 mg/dL (70-110); POTASSIUM 3.2 mmol/L (3.5-5.1); SODIUM SERUM 154 mmol/L (136-145); UREA NITROGEN, BLOOD 37 mg/dL (7-18)
[2017-05-29 16:13] LABS: PHOSPHORUS 2.9 mg/dL (2.5-4.9)
[2017-05-29 16:18] LABS: GLUCOMETER DEV NAME(LOC) 6N 2D; GLUCOSE,POINT OF CARE 135 MG/DL (70-110)
[2017-05-29 16:18] LABS: GLUCOMETER DEV NAME(LOC) 6N 2D; GLUCOSE,POINT OF CARE 134 MG/DL (70-110)
[2017-05-29 18:34] LABS: GLUCOMETER DEV NAME(LOC) 6N 1E; GLUCOSE,POINT OF CARE 129 MG/DL (70-110)
[2017-05-29 18:34] LABS: GLUCOMETER DEV NAME(LOC) 6N 1E; GLUCOSE,POINT OF CARE 137 MG/DL (70-110)
[2017-05-29 19:07] VITALS: BP 153/83
[2017-05-29] MEDS: ATORVASTATIN CALCIUM 10 MG TABLET PO SCH (20:40)
[2017-05-29 20:51] LABS: BASOPHILS % (AUTO) 0.1 % (0.0-2.0); EOSINOPHILS # (AUTO) 0.12 K/uL (0.00-0.70); EOSINOPHILS % (AUTO) 1.52 % (1.0-6.0); HEMATOCRIT 34.6 % (36-46); HEMOGLOBIN 11.2 g/dL (12.0-16.0); LYMPHOCYTES # (AUTO) 0.8 K/uL (1.0-4.8); MEAN CORPUSCULAR HEMOGLOBIN 30.1 pg (26.0-34.0); MEAN CORPUSCULAR HGB CONC 32.5 G/dL (31.0-37.0); MEAN CORPUSCULAR VOLUME 92 fL (80-100); MONOCYTES % (AUTO) 12.5 % (2.0-9.0); NEUTROPHILS # (AUTO) 5.8 K/uL (1.8-7.7); PLATELET COUNT (AUTO) 334 K/uL (150-450); RED BLOOD CELL COUNT(AUTO) 3.74 MIL/uL (4.00-5.20); RED CELL DISTRIBUTION WIDTH 13.5 % (11.5-14.5)
[2017-05-29 21:17] LABS: HEMOGLOBIN A1C 6.7 % (4.5-6.2)
[2017-05-29 23:04] VITALS: BP 158/97
[2017-05-29 23:17] LABS: THYROID STIMULATING HORMONE 0.95 uIU/mL (0.36-3.74)
[2017-05-30] VITALS (7 sets, daily range): BP systolic 115–182; BP diastolic 56–92
[2017-05-30 02:32] LABS: GLUCOMETER DEV NAME(LOC) 6N 2D; GLUCOSE,POINT OF CARE 136 MG/DL (70-110)
[2017-05-30] MEDS: MetroNIDAZOLE 250 MG/NACL 50 ML IV SCH ×3 (04:12→19:41)
[2017-05-30] MEDS: PANTOPRAZOLE SODIUM 40 MG DR TABLET PO SCH (06:38)
[2017-05-30 07:07] LABS: HEMOGLOBIN 11.2 g/dL (12.0-16.0); MEAN CORPUSCULAR HEMOGLOBIN 29.8 pg (26.0-34.0); MEAN CORPUSCULAR HGB CONC 32.1 G/dL (31.0-37.0); MEAN CORPUSCULAR VOLUME 93 fL (80-100); PLATELET COUNT (AUTO) 325 K/uL (150-450); RED BLOOD CELL COUNT(AUTO) 3.76 MIL/uL (4.00-5.20); RED CELL DISTRIBUTION WIDTH 13.8 % (11.5-14.5)
[2017-05-30 07:36] LABS: ALANINE AMINOTRANSFERASE 37 U/L (12-78); ALBUMIN 2.6 g/dL (3.4-5.0); ALKALINE PHOSPHATASE 79 U/L (46-116); ASPARTATE AMINOTRANSFERASE 25 U/L (15-37); BILIRUBIN,TOTAL 0.4 mg/dL (0.1-1.0); CARBON DIOXIDE 30 mmol/L (22-29); CREATININE 0.85 mg/dL (0.60-1.30); GLOMERULAR FILTR. RATE CALC > 60 mL/min (>60); GLUCOSE,RANDOM 122 mg/dL (70-110); TOTAL PROTEIN, SERUM 6.6 g/dL (6.4-8.2); UREA NITROGEN, BLOOD 26 mg/dL (7-18)
[2017-05-30] MEDS: TIOTROPIUM BROMIDE 18 MCG/INH HANDIHALER [5] IH SCH (08:05)
[2017-05-30] MEDS: DOCUSATE SODIUM 250 MG CAPSULE PO SCH ×3 (08:06→21:10)
[2017-05-30] MEDS: CARVEDILOL 6.25 MG TABLET PO SCH ×2 (08:06→21:11)
[2017-05-30] MEDS: SitaGLIPtin PHOSPHATE 50 MG TABLET PO SCH (08:06)
[2017-05-30] MEDS: FUROSEMIDE 20 MG TABLET PO SCH (08:06)
[2017-05-30] MEDS: HydrALAZINE HCL 25 MG TABLET PO SCH ×2 (08:06→21:11)
[2017-05-30] MEDS: CLOPIDOGREL BISULFATE 75 MG TABLET PO SCH (08:06)
[2017-05-30] MEDS: QUEtiapine FUMARATE 25 MG TABLET PO SCH (08:06)
[2017-05-30] MEDS: HEPARIN SODIUM,PORCINE 5,000 UNITS/ML VIAL SQ SCH ×2 (08:07→21:10)
[2017-05-30] MEDS: MULTIVITAMINS WITH MINERALS, THERAPEUTIC TABLET PO SCH (08:07)
[2017-05-30] MEDS: POLYETHYLENE GLYCOL 3350 17 GM PACKET PO SCH (08:08)
[2017-05-30] MEDS: CIPROFLOXACIN 200 MG/D5% WATER 100 ML IV SCH ×2 (08:09→21:10)
[2017-05-30 08:31] LABS: ANION GAP 11 mmol/L (8-16); CALCIUM, TOTAL 8.7 mg/dL (8.8-10.5); CHLORIDE 112 mmol/L (98-107); SODIUM SERUM 153 mmol/L (136-145)
[2017-05-30] MEDS: SODIUM CHLORIDE 1 GM TABLET PO SCH (09:00)
[2017-05-30] MEDS: CefTAZidime PENTAHYDRATE 1 GM in DEXTROSE 5%-WATER 50 ML IV SCH ×2 (10:26→23:01)
[2017-05-30 10:28] LABS: BAND NEUTROPHILS % (MANUAL) 2 % (1-5); EOSINOPHILS % (MANUAL) 1 % (1-6); LYMPHOCYTES % (MANUAL) 15 % (22-44); MONOCYTES % (MANUAL) 9 % (2-9); SEGMENTED NEUTROPHILS % 73 % (40-70)
[2017-05-30] MEDS ORDERED: POTASSIUM CHL 10 MEQ/WATER 50 ML IV PRN (10:30)
[2017-05-30 11:33] LABS: GLUCOMETER DEV NAME(LOC) 6N 1E; GLUCOSE,POINT OF CARE 119 MG/DL (70-110)
[2017-05-30 11:33] LABS: GLUCOMETER DEV NAME(LOC) 6N 1E; GLUCOSE,POINT OF CARE 146 MG/DL (70-110)
[2017-05-30] MEDS: INSULIN ASPART 100 UNITS/ML SQ PRN (11:34)
[2017-05-30 13:13] LABS: GLUCOMETER DEV NAME(LOC) 6N 2D; GLUCOSE,POINT OF CARE 144 MG/DL (70-110)
[2017-05-30] MEDS: POTASSIUM CHLORIDE 20 MEQ ER TABLET PO PRN (13:15)
[2017-05-30 17:28] LABS: GLUCOMETER DEV NAME(LOC) 6N 2D; GLUCOSE,POINT OF CARE 109 MG/DL (70-110)
[2017-05-30] MEDS: ATORVASTATIN CALCIUM 10 MG TABLET PO SCH (21:11)
[2017-05-30] MEDS: ONDANSETRON HCL 4 MG/2 ML VIAL IVP PRN (23:01)
[2017-05-30 23:43] LABS: GLUCOMETER DEV NAME(LOC) 6N 2D; GLUCOSE,POINT OF CARE 105 MG/DL (70-110)
[2017-05-31] MEDS: MetroNIDAZOLE 250 MG/NACL 50 ML IV SCH ×3 (03:55→20:20)
[2017-05-31 04:25] VITALS: BP 146/92
[2017-05-31] MEDS: PANTOPRAZOLE SODIUM 40 MG DR TABLET PO SCH (06:00)
[2017-05-31 06:52] LABS: GLUCOMETER DEV NAME(LOC) 6N 2D; GLUCOSE,POINT OF CARE 108 MG/DL (70-110)
[2017-05-31 07:28] LABS: HEMATOCRIT 34.2 % (36-46); HEMOGLOBIN 11.5 g/dL (12.0-16.0); MEAN CORPUSCULAR HEMOGLOBIN 30.7 pg (26.0-34.0); MEAN CORPUSCULAR HGB CONC 33.6 G/dL (31.0-37.0); MEAN CORPUSCULAR VOLUME 91 fL (80-100); PLATELET COUNT (AUTO) 300 K/uL (150-450); RED BLOOD CELL COUNT(AUTO) 3.75 MIL/uL (4.00-5.20); RED CELL DISTRIBUTION WIDTH 13.5 % (11.5-14.5)
[2017-05-31 07:33] VITALS: BP 140/70
[2017-05-31 07:39] LABS: ANION GAP 8 mmol/L (8-16); CALCIUM, TOTAL 8.6 mg/dL (8.8-10.5); CARBON DIOXIDE 30 mmol/L (22-29); CHLORIDE 107 mmol/L (98-107); GLOMERULAR FILTR. RATE CALC > 60 mL/min (>60); GLUCOSE,RANDOM 116 mg/dL (70-110); POTASSIUM 3.8 mmol/L (3.5-5.1); SODIUM SERUM 145 mmol/L (136-145); UREA NITROGEN, BLOOD 20 mg/dL (7-18)
[2017-05-31 07:43] LABS: ALANINE AMINOTRANSFERASE 33 U/L (12-78); ALBUMIN 2.5 g/dL (3.4-5.0); ALKALINE PHOSPHATASE 68 U/L (46-116); ASPARTATE AMINOTRANSFERASE 27 U/L (15-37); BILIRUBIN,TOTAL 0.3 mg/dL (0.1-1.0); TOTAL PROTEIN, SERUM 6.2 g/dL (6.4-8.2)
[2017-05-31] MEDS: DOCUSATE SODIUM 250 MG CAPSULE PO SCH ×3 (09:33→20:53)
[2017-05-31] MEDS: CARVEDILOL 6.25 MG TABLET PO SCH ×2 (09:34→23:40)
[2017-05-31] MEDS: HEPARIN SODIUM,PORCINE 5,000 UNITS/ML VIAL SQ SCH ×2 (09:34→20:53)
[2017-05-31] MEDS: TIOTROPIUM BROMIDE 18 MCG/INH HANDIHALER [5] IH SCH (09:34)
[2017-05-31] MEDS: MULTIVITAMINS WITH MINERALS, THERAPEUTIC TABLET PO SCH (09:34)
[2017-05-31] MEDS: HydrALAZINE HCL 25 MG TABLET PO SCH ×2 (09:34→23:40)
[2017-05-31] MEDS: SitaGLIPtin PHOSPHATE 50 MG TABLET PO SCH (09:34)
[2017-05-31] MEDS: CLOPIDOGREL BISULFATE 75 MG TABLET PO SCH (09:34)
[2017-05-31] MEDS: POLYETHYLENE GLYCOL 3350 17 GM PACKET PO SCH (09:34)
[2017-05-31] MEDS: QUEtiapine FUMARATE 25 MG TABLET PO SCH (09:35)
[2017-05-31] MEDS: CIPROFLOXACIN 200 MG/D5% WATER 100 ML IV SCH (09:39)
[2017-05-31 10:29] LABS: BASOPHILS # (AUTO) 0.03 K/uL (0.00-0.20); BASOPHILS % (AUTO) 0.4 % (0.0-2.0); EOSINOPHILS % (AUTO) 3.35 % (1.0-6.0); HEMATOCRIT 31.7 % (36-46); HEMOGLOBIN 10.6 g/dL (12.0-16.0); LYMPHOCYTES % (AUTO) 11.6 % (22.0-44.0); MEAN CORPUSCULAR HEMOGLOBIN 30.5 pg (26.0-34.0); MEAN CORPUSCULAR HGB CONC 33.4 G/dL (31.0-37.0); MEAN CORPUSCULAR VOLUME 91 fL (80-100); MONOCYTES # (AUTO) 0.7 K/uL (0.1-1.0); MONOCYTES % (AUTO) 7.7 % (2.0-9.0); NEUTROPHILS # (AUTO) 6.9 K/uL (1.8-7.7); PLATELET COUNT (AUTO) 296 K/uL (150-450); RED BLOOD CELL COUNT(AUTO) 3.47 MIL/uL (4.00-5.20); RED CELL DISTRIBUTION WIDTH 13.6 % (11.5-14.5)
[2017-05-31 10:34] LABS: EOSINOPHILS % (MANUAL) 2 % (1-6); LYMPHOCYTES % (MANUAL) 15 % (22-44); MONOCYTES % (MANUAL) 9 % (2-9); SEGMENTED NEUTROPHILS % 74 % (40-70)
[2017-05-31 10:53] LABS: ANION GAP 6 mmol/L (8-16); CALCIUM, TOTAL 8.7 mg/dL (8.8-10.5); CARBON DIOXIDE 32 mmol/L (22-29); CHLORIDE 106 mmol/L (98-107); CREATININE 0.81 mg/dL (0.60-1.30); GLOMERULAR FILTR. RATE CALC > 60 mL/min (>60); GLUCOSE,RANDOM 130 mg/dL (70-110); POTASSIUM 3.4 mmol/L (3.5-5.1); SODIUM SERUM 144 mmol/L (136-145); UREA NITROGEN, BLOOD 20 mg/dL (7-18)
[2017-05-31] MEDS: CefTAZidime PENTAHYDRATE 1 GM in DEXTROSE 5%-WATER 50 ML IV SCH ×2 (11:04→23:01)
[2017-05-31 11:20] VITALS: BP 150/65
[2017-05-31 11:53] LABS: GLUCOMETER DEV NAME(LOC) 6N 1E; GLUCOSE,POINT OF CARE 117 MG/DL (70-110)
[2017-05-31 12:17] LABS: C.DIFF GDH ANTIGEN, Stool Positive (Negative); C.DIFF TOXINS A&B, Stool Negative (Negative)
[2017-05-31 16:44] VITALS: BP 135/64
[2017-05-31 18:12] LABS: GLUCOMETER DEV NAME(LOC) 6N 1E; GLUCOSE,POINT OF CARE 102 MG/DL (70-110)
[2017-05-31] MEDS: ATORVASTATIN CALCIUM 10 MG TABLET PO SCH (20:53)
[2017-05-31 20:57] VITALS: BP 114/46
[2017-05-31] MEDS ORDERED: SODIUM CHLORIDE 0.9% 500 ML IV ONE (21:58)
[2017-05-31] MEDS: INSULIN ASPART 100 UNITS/ML SQ PRN (22:17)
[2017-05-31 23:38] VITALS: BP 125/56
[2017-06-01] MEDS: MetroNIDAZOLE 500 MG TABLET PO SCH ×4 (00:23→23:52)
[2017-06-01 00:42] VITALS: BP 118/55
[2017-06-01 03:04] LABS: GLUCOMETER DEV NAME(LOC) 6N 2D; GLUCOSE,POINT OF CARE 149 MG/DL (70-110)
[2017-06-01 07:50] LABS: HEMATOCRIT 30.5 % (36-46); HEMOGLOBIN 10.1 g/dL (12.0-16.0); MEAN CORPUSCULAR HEMOGLOBIN 30.3 pg (26.0-34.0); MEAN CORPUSCULAR HGB CONC 33.2 G/dL (31.0-37.0); MEAN CORPUSCULAR VOLUME 91 fL (80-100); PLATELET COUNT (AUTO) 284 K/uL (150-450); RED BLOOD CELL COUNT(AUTO) 3.35 MIL/uL (4.00-5.20); RED CELL DISTRIBUTION WIDTH 13.7 % (11.5-14.5)
[2017-06-01 08:09] VITALS: BP 132/92
[2017-06-01 08:43] LABS: BAND NEUTROPHILS % (MANUAL) 1 % (1-5); EOSINOPHILS % (MANUAL) 2 % (1-6); LYMPHOCYTES % (MANUAL) 12 % (22-44); MONOCYTES % (MANUAL) 6 % (2-9); SEGMENTED NEUTROPHILS % 79 % (40-70)
[2017-06-01 09:01] LABS: ALANINE AMINOTRANSFERASE 38 U/L (12-78); ALBUMIN 2.4 g/dL (3.4-5.0); ALKALINE PHOSPHATASE 62 U/L (46-116); ANION GAP 10 mmol/L (8-16); ASPARTATE AMINOTRANSFERASE 38 U/L (15-37); BILIRUBIN,TOTAL 0.4 mg/dL (0.1-1.0); CALCIUM, TOTAL 8.4 mg/dL (8.8-10.5); CARBON DIOXIDE 30 mmol/L (22-29); CHLORIDE 103 mmol/L (98-107); CREATININE 0.85 mg/dL (0.60-1.30); GLOMERULAR FILTR. RATE CALC > 60 mL/min (>60); GLUCOSE,RANDOM 98 mg/dL (70-110); PHOSPHORUS 2.8 mg/dL (2.5-4.9); POTASSIUM 3.4 mmol/L (3.5-5.1); SODIUM SERUM 143 mmol/L (136-145); TOTAL PROTEIN, SERUM 5.9 g/dL (6.4-8.2)
[2017-06-01 09:08] LABS: UREA NITROGEN, BLOOD 17 mg/dL (7-18)
[2017-06-01] MEDS: HEPARIN SODIUM,PORCINE 5,000 UNITS/ML VIAL SQ SCH ×2 (09:37→20:40)
[2017-06-01] MEDS: TIOTROPIUM BROMIDE 18 MCG/INH HANDIHALER [5] IH SCH (09:37)
[2017-06-01] MEDS: DOCUSATE SODIUM 250 MG CAPSULE PO SCH ×3 (09:37→20:39)
[2017-06-01] MEDS: MULTIVITAMINS WITH MINERALS, THERAPEUTIC TABLET PO SCH (09:37)
[2017-06-01] MEDS: CLOPIDOGREL BISULFATE 75 MG TABLET PO SCH (09:37)
[2017-06-01] MEDS: SitaGLIPtin PHOSPHATE 50 MG TABLET PO SCH (09:38)
[2017-06-01] MEDS: HydrALAZINE HCL 25 MG TABLET PO SCH ×2 (09:38→20:39)
[2017-06-01] MEDS: QUEtiapine FUMARATE 25 MG TABLET PO SCH (09:38)
[2017-06-01] MEDS: CARVEDILOL 6.25 MG TABLET PO SCH ×2 (09:39→20:39)
[2017-06-01] MEDS: POLYETHYLENE GLYCOL 3350 17 GM PACKET PO SCH (09:39)
[2017-06-01] MEDS: PANTOPRAZOLE SODIUM 40 MG DR TABLET PO SCH (09:39)
[2017-06-01 13:52] VITALS: BP 142/86
[2017-06-01] MEDS: CefTRIAXone 1 GM/DEXTROSE 50 ML IV SCH (14:16)
[2017-06-01 15:03] VITALS: BP 138/82
[2017-06-01 17:33] LABS: GLUCOMETER DEV NAME(LOC) 6N 2D; GLUCOSE,POINT OF CARE 110 MG/DL (70-110)
[2017-06-01 19:35] VITALS: BP 172/75
[2017-06-01] MEDS: ATORVASTATIN CALCIUM 10 MG TABLET PO SCH (20:39)
[2017-06-01] MEDS: INSULIN ASPART 100 UNITS/ML SQ PRN (20:50)
[2017-06-01] MEDS ORDERED: MIRTAZAPINE 15 MG TABLET PO SCH (21:00)
[2017-06-01 21:08] LABS: GLUCOMETER DEV NAME(LOC) 6N 2D; GLUCOSE,POINT OF CARE 147 MG/DL (70-110)
[2017-06-01 23:01] LABS: INFLUENZA TYPE A NEGATIVE FOR TYPE A (NEGATIVE); INFLUENZA TYPE B NEGATIVE FOR TYPE B (NEGATIVE)
[2017-06-01 23:57] VITALS: BP 143/83
[2017-06-02 03:53] LABS: GLUCOMETER DEV NAME(LOC) 6N 1E; GLUCOSE,POINT OF CARE 173 MG/DL (70-110)
[2017-06-02 04:30] VITALS: BP 139/83
[2017-06-02] MEDS: POTASSIUM CHLORIDE 20 MEQ ER TABLET PO PRN (05:31)
[2017-06-02] MEDS: PANTOPRAZOLE SODIUM 40 MG DR TABLET PO SCH (05:31)
[2017-06-02 06:03] LABS: GLUCOMETER DEV NAME(LOC) 6N 2D; GLUCOSE,POINT OF CARE 94 MG/DL (70-110)
[2017-06-02 06:10] LABS: HEMATOCRIT 33.1 % (36-46); MEAN CORPUSCULAR HEMOGLOBIN 30.9 pg (26.0-34.0); MEAN CORPUSCULAR HGB CONC 33.4 G/dL (31.0-37.0); MEAN CORPUSCULAR VOLUME 93 fL (80-100); PLATELET COUNT (AUTO) 272 K/uL (150-450); RED BLOOD CELL COUNT(AUTO) 3.57 MIL/uL (4.00-5.20); RED CELL DISTRIBUTION WIDTH 13.6 % (11.5-14.5)
[2017-06-02 06:55] LABS: ALANINE AMINOTRANSFERASE 56 U/L (12-78); ALBUMIN 2.4 g/dL (3.4-5.0); ALKALINE PHOSPHATASE 63 U/L (46-116); ANION GAP 9 mmol/L (8-16); ASPARTATE AMINOTRANSFERASE 62 U/L (15-37); BILIRUBIN,TOTAL 0.4 mg/dL (0.1-1.0); CALCIUM, TOTAL 8.3 mg/dL (8.8-10.5); CARBON DIOXIDE 29 mmol/L (22-29); CHLORIDE 103 mmol/L (98-107); CREATININE 0.72 mg/dL (0.60-1.30); GLOMERULAR FILTR. RATE CALC > 60 mL/min (>60); GLUCOSE,RANDOM 99 mg/dL (70-110); PHOSPHORUS 2.6 mg/dL (2.5-4.9); POTASSIUM 3.6 mmol/L (3.5-5.1); SODIUM SERUM 141 mmol/L (136-145); TOTAL PROTEIN, SERUM 6.3 g/dL (6.4-8.2); UREA NITROGEN, BLOOD 12 mg/dL (7-18)
[2017-06-02 08:00] VITALS: BP 140/82
[2017-06-02] MEDS: CARVEDILOL 6.25 MG TABLET PO SCH (09:16)
[2017-06-02] MEDS: CLOPIDOGREL BISULFATE 75 MG TABLET PO SCH (09:16)
[2017-06-02] MEDS: HydrALAZINE HCL 25 MG TABLET PO SCH (09:16)
[2017-06-02] MEDS: QUEtiapine FUMARATE 25 MG TABLET PO SCH (09:16)
[2017-06-02] MEDS: TIOTROPIUM BROMIDE 18 MCG/INH HANDIHALER [5] IH SCH (09:16)
[2017-06-02] MEDS: MULTIVITAMINS WITH MINERALS, THERAPEUTIC TABLET PO SCH (09:16)
[2017-06-02] MEDS: DOCUSATE SODIUM 250 MG CAPSULE PO SCH (09:16)
[2017-06-02] MEDS: MetroNIDAZOLE 500 MG TABLET PO SCH (09:16)
[2017-06-02] MEDS: HEPARIN SODIUM,PORCINE 5,000 UNITS/ML VIAL SQ SCH (09:17)
[2017-06-02] MEDS: POLYETHYLENE GLYCOL 3350 17 GM PACKET PO SCH (09:17)
[2017-06-02] MEDS: SitaGLIPtin PHOSPHATE 50 MG TABLET PO SCH (09:17)
[2017-06-02 10:15] LABS: LYMPHOCYTES % (MANUAL) 15 % (22-44); MONOCYTES % (MANUAL) 6 % (2-9); SEGMENTED NEUTROPHILS % 79 % (40-70)
[2017-06-02] MEDS: CefTRIAXone 1 GM/DEXTROSE 50 ML IV SCH (10:23)
[2017-06-02 12:00] VITALS: BP 116/50
[2017-06-02 15:58] LABS: GLUCOMETER DEV NAME(LOC) 6N 2D; GLUCOSE,POINT OF CARE 121 MG/DL (70-110)
== END 2017-06-02 14:15 | DRG 871 ==
LOC: EMS 18:21 → 6N 05-28 10:30
PROVIDERS: ADMIT Internal Medicine; ATTEND Internal Medicine
DX: A41.9 Sepsis, unspecified organism (principal); J96.01 Acute respiratory failure with hypoxia; N17.9 Acute kidney failure, unspecified; E22.2 Syndrome of inappropriate secretion of antidiuretic hormone; N39.0 Urinary tract infection, site not specified; I13.0 Hypertensive heart and chronic kidney disease with heart failure and stage 1 through stage 4 chronic kidney disease, or unspecified chronic kidney disease; E11.22 Type 2 diabetes mellitus with diabetic chronic kidney disease; E11.51 Type 2 diabetes mellitus with diabetic peripheral angiopathy without gangrene; F41.9 Anxiety disorder, unspecified; F32.9 Major depressive disorder, single episode, unspecified; B96.20 Unspecified Escherichia coli [E. coli] as the cause of diseases classified elsewhere; E78.00 Pure hypercholesterolemia, unspecified; E78.5 Hyperlipidemia, unspecified; E87.6 Hypokalemia; N18.9 Chronic kidney disease, unspecified; K56.41 Fecal impaction; K52.9 Noninfective gastroenteritis and colitis, unspecified; K21.9 Gastro-esophageal reflux disease without esophagitis; J44.9 Chronic obstructive pulmonary disease, unspecified; J10.1 Influenza due to other identified influenza virus with other respiratory manifestations; I50.9 Heart failure, unspecified; I25.10 Atherosclerotic heart disease of native coronary artery without angina pectoris; Z79.84 Long term (current) use of oral hypoglycemic drugs; Z79.02 Long term (current) use of antithrombotics/antiplatelets; Z79.4 Long term (current) use of insulin; Z79.899 Other long term (current) drug therapy
CPT/HCPCS: 74018; 74176; 82962; 83036; 83735; 84100; 84132; 84145; 84443; 85007; 87040; 87081; 87086; 87324; 87449; 87804; 93005; 96361; 96374; 96375; 97161; 97165; 97530; 99285; J0696; J0713; J0744; J1644; J2405; J2543; J3010; J3490; J7030; J7040; J7060